=== PATIENT | female | born 1975 | race Caucasian/White ===

== ENCOUNTER 2019-11-02 11:31 | Emergency (ER) | payer MEDICARE, MEDICAID, SELFPAY ==
[2019-11-02 12:06] VITALS: BP 134/78; PULSE 74; RESP 16; TEMP 36.8; O2SAT 94; BMI 30.1
--- NOTE | 2019-11-02 14:00 | XR_ITS ---
WS: [id number] Chest with bilateral rib detail, today Clinical Data: pain Comparison: Portable chest, 07/30/2019 Findings: No nodules, masses or effusions are seen. The ribs are intact. No fractures are present. There is no subcutaneous emphysema or pneumothorax. No pneumonia is seen. The heart size is normal. XR/XR ribs BI mn 4V w CXR1V [id number] Impression: Negative chest with bilateral rib detail.
--- NOTE | 2019-11-02 14:14 | ED_ITS ---
HPI - General Adult General: Chief complaint: General Medical Stated complaint: rib pain Time Seen by Provider: 11/02/19 14:13 Source: patient Mode of arrival: ambulatory Limitations: no limitations History of Present Illness: HPI narrative: Patient is a 44-year-old female who presents to ED today with complaints of intermittent bilateral rib pain over the past month or so; patient states she feels like her ribs spasm and seems to improve when she stretches them; patient states pain seems to alternate on either side; it is not affected by eating; she has no pain on deep inhalation; she does not complain of chest pain or shortness of breath; she does not complain of abdominal pain, nausea, vomiting Onset (ago): month(s) Location: chest Radiation: non-radiation Pain Consistency: intermittent and now resolved Exacerbating factors: none Associated symptoms: Reports no associated symptoms and chest pain; Deny dyspnea, nausea, rash, palpitations, syncope or vomiting Treatments prior to arrival: other (Muscle relaxers without relief) Review of Systems Const: Denies: fever or chills Eyes: Denies: change in vision or blurry vision Card: Reports: chest pain; Denies: palpitations, irregular heart rhythm, edema, swelling of feet/ankles, lightheadedness, syncope, pre-syncope, shortness of breath on exertion, shortness of breath when lying down, leg pain with exertion or bluish discoloration of hands/feet Resp: Denies: shortness of breath, productive cough, wheezing, stridor, pain on inspiration, coughing up blood or chest congestion GI: Denies: abdominal pain, nausea, vomiting, heartburn/indigestion or diarrhea : Denies: painful urination Musc: Denies: neck pain, back pain or joint pain Skin/Breast: Denies: rash PFSH ED PFSH: Statuses (acute, chronic, etc) shown below reflect problem list status as previously entered and may not be historically accurate Family History (Updated 10/30/19 @ 15:59 by Francine Nieto MA) Family/Other Cancer Breast Mother Cancer Mesothelioma Father Cancer Diabetes Family/Other Dementia Grandfather Diabetes Social History (Updated 10/30/19 @ 16:25 by Francine Nieto MA) Smoking and tobacco status: current every day smoker cigarettes Packs smoked per day: 0.5 Second hand smoke exposure: Yes Smoking risk assessment/counseling performed?: No Alcohol intake: unknown Desire information about alcohol rehabilitation?: No Counseling given: No Desire information about substance/drug rehabilitation?: No Counseling given: No Physical Exam Const: COMMON NORMALS: no apparent distress, oriented x3 and alert GENERAL APPEARANCE: cooperative HENMT: COMMON NORMALS: normocephalic, head/scalp atraumatic, external ears normal, EAC's normal, TM's normal bilaterally and external nose normal HEAD & SCALP: normal to inspection, normocephalic and atraumatic FACE & SINUS: normal facial exam NOSE: external nose normal EXTERNAL EAR: Yes external ears normal EXTERNAL AUDITORY CANAL: EAC's normal TYMPANIC MEMBRANE: TM's normal bilaterally MOUTH: oral and palatal mucosa normal THROAT: posterior oropharynx normal, tonsils normal and uvula midline Eye: COMMON NORMALS: PERRL and EOMs intact bilaterally PUPIL: Yes PERRL Neck/C-Spine: COMMON NORMALS: full ROM, no lymphadenopathy, supple and no meningeal signs Chest: COMMONS NORMALS: inspection of chest normal and palpation of chest normal Resp: COMMON NORMALS: normal respiratory effort, no retractions, no use of accessory muscles and clear to auscultation bilaterally AUSCULTATION: clear to auscultation bilaterally Cardio: COMMON NORMALS: regular rate and regular rhythm RATE: regular rate RHYTHM: regular rhythm GI: COMMON NORMALS: normal to inspection, nondistended, normoactive bowel sounds, soft to palpation, non-tender, no hepatosplenomegaly and no masses PALPATION: Yes soft and Yes no hepatosplenomegaly Back/Pelvis: COMMON NORMALS: thoracic and lumbar spine normal to inspection Extremity: COMMON NORMALS: normal to inspection GENERAL: Yes normal exam except as noted Neuro: COMMON NORMALS: oriented x3 SENSORIUM/ORIENTATION: Yes alert MENINGEAL SIGNS: Yes no meningeal signs Course Vital Signs: Vital signs: Vital Signs Temperature 98.2 F 11/02/19 12:06 Pulse Rate 76 11/02/19 15:24 Respiratory Rate 18 11/02/19 15:24 Blood Pressure 102/74 11/02/19 15:24 Pulse Oximetry 94 11/02/19 15:24 MDM - General Adult Lab Data: Labs: Lab Results 11/02/19 11/02/19 Range/Units 14:42 14:42 WBC 11.8 H (4.0-10.0) 10^3/ uL RBC 5.13 (4.1-5.3) 10^6/u L Hgb 15.4 H (11.5-15.3) g/dL Hct 46.3 (37.0-47.0) % MCV 90.3 (81-99) fL MCH 30.0 (28.0-34.0) pg MCHC 33.3 (30.0-36.0) g/dL RDW 12.5 (12.1-15.1) % Plt Count 277 (130-400) 10^3/c mm MPV 10.1 (7.4-10.4) fL Neut % (Auto) 57.7 % Lymph % (Auto) 29.0 % [place] % (Auto) 5.9 % Eos % (Auto) 6.3 % Baso % (Auto) 0.8 % Neut # (Auto) 6.8 (1.8-7.7) 10^3/u L Lymph # (Auto) 3.4 (0.8-4.8) 10^3/u L [place] # (Auto) 0.7 (0.2-0.9) 10^3/u L Eos # (Auto) 0.7 (0.0-0.8) 10^3/u L Baso # (Auto) 0.1 (0.0-0.1) 10^3/u L Nucleated RBC % (a uto) 0 % Nucleated RBCs # 0.0 /100WBC Sodium 134 L (136-145) mmol/L Potassium 4.2 (3.5-5.1) mmol/L Chloride 98 (98-107) mmol/L Carbon Dioxide 23 (22-29) mmol/L Anion Gap 17.2 (5-19) BUN 13 (6-20) mg/dL Creatinine 0.8 (0.5-0.9) mg/dL GFR Calculation 77.2 L (90-130) mL/min Glucose 99 (74-109) mg/dL Calcium 10.1 H (8.6-10.0) mg/Dl Total Bilirubin 0.3 (0.15-1.2) mg/dL AST 19 (0-32) U/L ALT 19 (0-33) U/L Alkaline Phosphata se 114 H (35-105) IU/L Total Protein 7.9 (6.6-8.7) g/dL Albumin 4.4 (3.5-5.2) g/dL Globulin 3.5 (1.3-4.6) g/dL Lipase 48 (13-60) U/L Imaging Data^: CXR: Radiologist's impression: [address] [address] XRay Report Signed Patient: Mary Miller MR#: [id number] : 1975 Acct:[id number] Age/Sex: 44 / F ADM Date: 11/02/19 Loc: ER Attending Dr: Ordering Physician: Lizet Carbajal Date of Service: 11/02/19 Procedure(s): XR ribs BI mn 4V w CXR1V [id number] Accession Number(s): [id number] Report Number: [id number] WS: [id number] Chest with bilateral rib detail, today Clinical Data: pain Comparison: Portable chest, 07/30/2019 Findings: No nodules, masses or effusions are seen. The ribs are intact. No fractures are present. There is no subcutaneous emphysema or pneumothorax. No pneumonia is seen. The heart size is normal. XR/XR ribs BI mn 4V w CXR1V [id number] Impression: Negative chest with bilateral rib detail. Dictated By: Camila Jones MD Signed By: Camila Jones MD Signed Date/Time:11/02/191438 DD/ 35 Discharge Plan Discharge Patient Disposition: Home, Self-Care Clinical Impression: Rib pain on right side, Rib pain on left side Condition: Stable Prescriptions: No Action tizanidine [Zanaflex] 2 mg capsule 2 mg PO TID PRNRF: 0 hydrochlorothiazide 12.5 mg capsule 12.5 mg PO QAM RF: 0 simethicone 180 mg capsule 180 mg PO BID RF: 0 trazodone 100 mg tablet 200 mg PO .COMPLEX RF: 0 fluticasone propion-salmeterol [Advair Diskus] 500-50 mcg/dose blister with device 1 inh INHALATION Q12H RF: 0 All Day Allergy (cetirizine) 10 mg capsule 10 mg PO ONCE RF: 0 prazosin 1 mg capsule 1 mg PO .COMPLEX RF: 0 potassium chloride 10 mEq capsule, extended release 10 meq PO ONCE RF: 0 polyethylene glycol 3350 [Miralax] 17 gram/dose powder 17 gm PO ONCE RF: 0 albuterol sulfate [ProAir HFA] 90 mcg/actuation HFA aerosol inhaler 2 puff INHALATION Q6H PRNRF: 0 ibuprofen 200 mg capsule 200 mg PO Q12H PRNRF: 0 metoprolol tartrate 25 mg tablet 25 mg PO BID RF: 0 Centrum Flavor Burst Adult Tablet,Chewable 1 tab PO ONCE RF: 0 fexofenadine 180 mg tablet 180 mg PO Q24H RF: 0 duloxetine 60 mg capsule,delayed release(DR/EC) 60 mg PO ONCE RF: 0 clonazepam 0.5 mg tablet 0.5 mg PO Q8H RF: 0 naproxen sodium 220 mg capsule 220 mg PO TID PRNRF: 0 acetaminophen 500 mg tablet 500 mg PO Q4H PRNRF: 0 hydroxyzine HCl 25 mg tablet 25 mg PO QID PRNRF: 0 Discharge Orders: Discharge Order (Routine); Ordered 11/02/19 Ordered By: Lizet Carbajal Referrals: Candelaria Roe FNP [Primary Care Provider] - Discharge Diet: Usual diet Discharge Activity: Increase activity as tolerated Activity Restrictions/Additional Instructions: Follow-up with primary care in a week for continued symptoms. Discharge Date/Time: 11/02/19 15:24 Coding Level of Care Code ED Inspector And Mender for Stan Rainey Exam Problem Focused
[2019-11-02 14:48] LABS: Basophils # 0.1 10^3/uL (0.0-0.1); Basophils % 0.8 %; Eosinophils # 0.7 10^3/uL (0.0-0.8); Eosinophils % 6.3 %; Hematocrit 46.3 % (37.0-47.0); Hemoglobin 15.4 g/dL (11.5-15.3); Lymphocytes # 3.4 10^3/uL (0.8-4.8); Mean Corpuscular HGB Conc 33.3 g/dL (30.0-36.0); Mean Corpuscular Volume 90.3 fL (81-99); Mean Platelet Volume 10.1 fL (7.4-10.4); Monocytes # 0.7 10^3/uL (0.2-0.9); Monocytes % 5.9 %; Neutrophils # 6.8 10^3/uL (1.8-7.7); Neutrophils % 57.7 %; Nucleated Red Blood Cells % 0 %; Platelet Count 277 10^3/cmm (130-400); Red Blood Count 5.13 10^6/uL (4.1-5.3); Red Cell Distribution Width 12.5 % (12.1-15.1); White Blood Count 11.8 10^3/uL (4.0-10.0)
[2019-11-02 15:11] LABS: Alanine Aminotransferase 19 U/L (0-33); Albumin Level 4.4 g/dL (3.5-5.2); Alkaline Phosphatase 114 IU/L (35-105); Anion Gap 17.2 (5-19); Aspartate Amino Transferase 19 U/L (0-32); Blood Urea Nitrogen 13 mg/dL (6-20); Calcium 10.1 mg/Dl (8.6-10.0); Carbon Dioxide 23 mmol/L (22-29); Chloride 98 mmol/L (98-107); Globulin 3.5 g/dL (1.3-4.6); Glomerular Filtration Rate 77.2 mL/min (90-130); Glucose 99 mg/dL (74-109); Lipase 48 U/L (13-60); Potassium 4.2 mmol/L (3.5-5.1); Sodium 134 mmol/L (136-145); Total Bilirubin 0.3 mg/dL (0.15-1.2); Total Protein 7.9 g/dL (6.6-8.7)
[2019-11-02 15:24] VITALS: BP 102/74; PULSE 76; RESP 18; O2SAT 94
== END 2019-11-02 15:24 | disposition home or self-care (01) ==
PROVIDERS: Physician Assistant; Emergency Provider Emergency Medicine; Family Provider Nurse Practitioner; PCP Nurse Practitioner
DX: R07.81 Pleurodynia (principal); F17.210 Nicotine dependence, cigarettes, uncomplicated
CPT/HCPCS: 36415; 71111; 80053; 83690; 85025; 99281; 99283

== ENCOUNTER → 2019-11-05 12:40 | Outpatient (BNVA) | payer MEDICARE, MEDICAID, SELFPAY | PROVIDERS: Family Provider Nurse Practitioner; PCP Nurse Practitioner; Visit Provider Psychiatry & Neurology Psychiatry | DX: F33.2 Major depressive disorder, recurrent severe without psychotic features (principal); F41.1 Generalized anxiety disorder; F43.12 Post-traumatic stress disorder, chronic | CPT/HCPCS: 99213 ==

== ENCOUNTER → 2019-11-26 15:04 | Outpatient (BNVA) | payer MEDICARE, SELFPAY | PROVIDERS: Family Provider Nurse Practitioner; PCP Nurse Practitioner; Referring Provider Family Medicine; Visit Provider Family Medicine | DX: R07.81 Pleurodynia (principal); R21 Rash and other nonspecific skin eruption; B02.9 Zoster without complications | CPT/HCPCS: 85025; 85651; 86140; 86431; 87806 ==

== ENCOUNTER 2019-11-30 06:54 | Outpatient (CLI) | payer MEDICARE, MEDICAID, SELFPAY ==
--- NOTE | 2019-11-30 07:15 | USCV_ITS ---
Angela Mary Age: 44 Gender: F : 1975 Exam Date: 11/30/2019 07:12 Ordering Phys: Brandi Samuel MD ([email or web address]) Technologist: Merari Whitman Exam Location: [facility] [place] Indication: CHEST PAIN SHORTNESS OF BREATH PALPITATIONS BP: 110 / 70 HR: 90 Rhythm: Sinus Technical Quality: Adequate MEASUREMENTS (Male / Female) Normal Values 2D ECHO LV Diastolic Diameter PLAX 3.7 cm 4.2 - 5.9 / 3.9 - 5.3 cm LV Systolic Diameter PLAX 2.1 cm LV Chamber Size 2.5 cm IVS Diastolic Thickness 1.0 cm 0.6 - 1.0 / 0.6 - 0.9 cm IVS Systolic Thickness 1.2 cm LVPW Diastolic Thickness 0.4 cm 0.6 - 1.0 / 0.6 - 0.9 cm LVPW Systolic Thickness 1.5 cm RV Chamber Size 2.6 cm LVOT Diameter 2.0 cm LV Ejection Fraction 2D Teich 74.0 % LV Ejection Fraction MOD 2C 75.0 % LV Ejection Fraction 2C AL 76.1 % LA Diameter 2.7 cm LA Width 2.7 cm LA Height 3.5 cm RA Width 2.8 cm RA Height 3.1 cm Aorta at Sinotubular Diameter 3.3 cm M-MODE LV Diastolic Diameter MM 4.3 cm 4.2 - 5.9 / 3.9 - 5.3 cm LV Systolic Diameter MM 2.9 cm LV Ejection Fraction MM Teich 61.5 % IVS Diastolic Thickness MM 0.7 cm 0.6 - 1.0 / 0.6 - 0.9 cm IVS Systolic Thickness MM 0.9 cm LVPW Diastolic Thickness MM 0.9 cm 0.6 - 1.0 / 0.6 - 0.9 cm LVPW Systolic Thickness MM 1.1 cm RV Diastolic Diameter MM 0.8 cm Aortic Annulus Diameter 3.6 cm LA Ao Ratio MM 0.8 MV E Point Septal Separation 0.2 cm DOPPLER AV Peak Velocity 125.0 cm/s LVOT Peak Velocity 89.0 cm/s AV Area Cont Eq vti 2.6 cm squared AV Area Cont Eq pk 2.3 cm squared MV Area PHT 6.5 cm squared Mitral E to A Ratio 0.9 MV E' Velocity 16.0 cm/s Mitral E to MV E' Ratio 4.7 Mitral E to LV E' Lateral Ratio 3.8 Mitral E to LV E' Septal Ratio 5.9 TR Peak Velocity 242.6 cm/s TR Peak Gradient 23.5 mmHg TR Mean Velocity 146.4 cm/s TR Mean Gradient 10.0 mmHg TR Velocity Time Integral 42.1 cm TV Peak E Velocity 64.0 cm/s Right Atrial Pressure 3.0 mmHg Pulmonary Artery Systolic Pressu 26.5 mmHg PV Peak Velocity 52.0 cm/s RV Acceleration Time 0.2 s RV Ejection Time 0.3 s RV AcT/ET 0.5 FINDINGS Left Ventricle Normal left ventricular cavity size. Normal left ventricular systolic function. No regional wall motion abnormalities. Left ventricular ejection fraction is estimated at 61 %. Grade I/IV diastolic dysfunction (abnormal relaxation filling pattern), normal to mildly elevated filling pressures. Right Ventricle The right ventricle is normal in size and function. Right Atrium The right atrium is normal in size. Left Atrium The left atrium is normal in size. Mitral Valve Structurally normal mitral valve without significant stenosis or prolapse. There is no mitral regurgitation. Aortic Valve Aortic valve sclerosis without stenosis or regurgitation. Tricuspid Valve Structurally normal tricuspid valve without significant stenosis or regurgitation. Pulmonary artery systolic pressure is normal. Pulmonic Valve Structurally normal pulmonic valve without significant stenosis. There is no pulmonic regurgitation. Pericardium Normal pericardium without effusion. Aorta Normal ascending aorta dimension. CONCLUSIONS 1-Normal left ventricular cavity size. Normal left ventricular systolic function. No regional wall motion abnormalities. Left ventricular ejection fraction is estimated at 61 %. Grade I/IV diastolic dysfunction (abnormal relaxation filling pattern), normal to mildly elevated filling pressures. 2-There is no pericardial effusion. 3-No significant valve abnormalities. 4-Pulmonary artery systolic pressure is within normal limits. 5-Right atrial pressure is around 5 mm of mercury. 6-There are no prior echocardiogram studies to compare. Brandi Samuel MD (Electronically Signed) Final Date: 30 November 2019 17:37 S
== END 2019-11-30 06:55 | disposition home or self-care (01) ==
LOC: US 06:57
PROVIDERS: Visit Provider Internal Medicine Cardiovascular Disease
DX: R07.9 Chest pain, unspecified (principal); R06.02 Shortness of breath; R00.2 Palpitations
CPT/HCPCS: 93306

== ENCOUNTER 2019-12-03 08:38 | Outpatient (CLI) | payer MEDICARE, MEDICAID, SELFPAY ==
--- NOTE | 2019-12-03 08:44 | CT_ITS ---
WS: [id number] CT scan of the thoracic spine. Additional two-dimensional coronal and sagittal reconstruction was per formed. 12/03/2019 Clinical Data: back pain, and rib pain Comparison: None. DLP: 1079.[address] scans at [facility] use at least one of these dose optimization techniques: automat ed exposure control; mA and/or kV adjustment per patient size (includes targeted exams where dose is matched to clinical indication); or iterative reconstruction. Findings: No compression fractures are seen. There is minimal anterior osteoarthritic spurring of the lower tho racic vertebral bodies. The spinous processes are in good alignment. The proximal ribs are not remark able. There is calcification of the disc between the T10-T11 vertebral bodies. It is a Schmorl's node at the inferior aspect of the T11 vertebral body. CT/CT thoracic spine w con [id number] Impression: 1. Degenerative disc disease at T11-T12. 2. Schmorl's node at inferior posterior aspect of the T11 vertebral body.
--- NOTE | 2019-12-03 09:00 | CT_ITS ---
WS: [id number] CT scan of the chest with IV contrast, additional two-dimensional coronal and sagittal reconstruction was performed. 12/03/2019 Clinical Data: rib pain Comparison: Rib detail, 11/02/2019 DLP: 875.[address] scans at [facility] use at least one of these dose optimization techniques: automat ed exposure control; mA and/or kV adjustment per patient size (includes targeted exams where dose is matched to clinical indication); or iterative reconstruction. Findings: No nodules, masses or effusions are seen. The heart size is normal with no pericardial effusion. The pulmonary arterial system and thoracic aorta demonstrate no abnormalities or dilatations. There is no axillary or significant mediastinal adenopathy. The ribs appear to be normal. The trachea bifurcates normally into the bronchi. The upper abdomen is unremarkable CT/CT chest w con* [id number] Impression: Negative CT scan of the chest with IV contrast.
[2019-12-03] MEDS: iohexol 300 mg/mL 100 mL Btl IV ×2 (09:36→09:45)
== END 2019-12-03 08:39 | disposition home or self-care (01) ==
LOC: RADWPI 08:44
PROVIDERS: PCP Family Medicine; Visit Provider Family Medicine
DX: R07.81 Pleurodynia (principal); M51.34 Other intervertebral disc degeneration, thoracic region; M51.44 Schmorl's nodes, thoracic region
CPT/HCPCS: 71260; 72129; 99213; Q9967

== ENCOUNTER 2019-12-04 07:22 | Outpatient (CLI) | payer MEDICARE, MEDICAID, SELFPAY ==
--- NOTE | 2019-12-04 08:07 | ECG_ITS ---
NAME OF STUDY: EXERCISE SESTAMIBI STRESS TEST INDICATION: Shortness of Breath, EXERCISE DATA: The patient was exercised by Santhosh protocol. Baseline heart rate was 62 beats per minute. Baseline blood pressure was 118/83 millimeters of mercury. Target heart rate was 174 beats per minute. Maximum heart rate achieved was 159, which was 91% of the target heart rate. Maximum blood pressure was 159/83 millimeters of mercury. Total exercise time was 4 minutes. Maximum METs achieved was 7.0, maximum VO2 was 24.5. The reason for ending the test was completion of the protocol . The patient complained of shortness of during the stress test, which then resolved at the end of the test. ELECTROCARDIOGRAM: BASELINE: Showed sinus rhythm, normal axis, no significant ST-T changes at the baseline noted. EXERCISE: At the peak exercise level, No significant ST-T changes suggestive of ischemia noted. RECOVERY: During the recovery period, heart rate dropped appropriately. No significant ST-T changes in the recovery suggestive of ischemia noted. CONCLUSION: 1. Exercise capacity poor. 2. Heart rate response was appropriate. 3. Blood pressure response was appropriate. 4. Symptoms not suggestive of ischemia. 5. Electrocardiogram portion of the stress test was not suggestive of ischemia. 6. Nuclear scan will be documented separately. Please note that due to poor exercise capacity and under achievement of METs specificity and sensitivity of EKG portion of stress test will be low Electronically Signed On 12-04-2019 15:26:41 RECRUITER MANAGER by Brandi Samuel M.D. [email or web address]
--- NOTE | 2019-12-04 08:08 | NMCV_ITS ---
NM jenniffer perf SPECT r/s* [id number] Mary Miller Age: 44 Gender: F : 1975 Exam Date: 12/04/2019 08:40 Ordering Phys: Brandi Samuel MD ([email or web address]) Technologist: OG Davis Exam Location: [facility] Indications: SOB STRESS TEST [facility] IMAGE PROTOCOL Rest/Stress 1 Exercise Day Radiopharmaceutical Dose (mCi) Administration Site Administered by Rest: Tc-99m 10.6 IV OG Davis Sestamibi Stress:Tc-99m 32.5 IV OG Davis Sestamimervat Rest: 04-Dec-2019 60 Discovery 630 Stress: 04-Dec-2019 30 Discovery 630 Radiopharmaceutical was injected at 85 % maximum heart rate. Images obtained in supine and prone position. SPECT RESULTS Technical Quality: Good Raw Data Analysis: Breast attenuation Image Corrections: No attenuation or motion correction applied Summed Stress Score: 0 Summed Rest Score: 0 Summed Difference Score: 0 PERFUSION FINDINGS SPECT images demonstrate homogeneous tracer distribution throughout the myocardium. FUNCTIONAL RESULTS (calculated via Gated SPECT) Stress Image LV EF (%): 64 Stress EDV (mL):70 TID: 1.05 Stress ESV (mL):25 Rest Image LV EF (%): 64 FUNCTIONAL FINDINGS: There is normal left ventricular systolic function. IMPRESSIONS Myocardial perfusion imaging is normal and low probability for obstructive coronary artery disease. EKG segment will be documented separately. Brandi Samuel MD (Electronically Signed) Final Date: 04 December 2019 14:33 S
[2019-12-04 08:09] VITALS: BMI 31.1
[2019-12-04 09:34] VITALS: BP 121/79; PULSE 95
== END 2019-12-04 07:23 | disposition home or self-care (01) ==
LOC: CDL 07:24
PROVIDERS: PCP Family Medicine; Visit Provider Internal Medicine
DX: I25.10 Atherosclerotic heart disease of native coronary artery without angina pectoris (principal); R06.02 Shortness of breath; R00.2 Palpitations
CPT/HCPCS: 78452; 93017; A9500

== ENCOUNTER → 2019-12-24 12:53 | Outpatient (BNVA) | payer MEDICARE, MEDICAID, SELFPAY | PROVIDERS: PCP Family Medicine; Visit Provider Specialist | DX: G43.711 Chronic migraine without aura, intractable, with status migrainosus (principal); G31.84 Mild cognitive impairment of uncertain or unknown etiology; D32.0 Benign neoplasm of cerebral meninges | CPT/HCPCS: 64615; 96372; 99213; J0585; J1885 ==

== ENCOUNTER → 2019-12-30 15:39 | Outpatient (BNVA) | payer MEDICARE, MEDICAID, SELFPAY | PROVIDERS: PCP Family Medicine; Referring Provider Nurse Practitioner Women's Health; Visit Provider Nurse Practitioner Women's Health | DX: N93.9 Abnormal uterine and vaginal bleeding, unspecified (principal) | CPT/HCPCS: 76830 ==

== ENCOUNTER → 2020-01-19 13:58 | Outpatient (BNVA) | payer MEDICARE, MEDICAID, SELFPAY | PROVIDERS: PCP Family Medicine; Visit Provider Specialist | DX: G43.909 Migraine, unspecified, not intractable, without status migrainosus (principal); Z71.89 Other specified counseling; F17.210 Nicotine dependence, cigarettes, uncomplicated; F31.63 Bipolar disorder, current episode mixed, severe, without psychotic features; F43.12 Post-traumatic stress disorder, chronic; F41.1 Generalized anxiety disorder; F41.0 Panic disorder [episodic paroxysmal anxiety] | CPT/HCPCS: 96372; 99214; G0463; J2405 ==

== ENCOUNTER → 2020-01-27 07:18 | Outpatient (BNVA) | payer MEDICARE, MEDICAID, SELFPAY | PROVIDERS: PCP Family Medicine; Visit Provider Nurse Practitioner Psychiatric/Mental Health | DX: F31.63 Bipolar disorder, current episode mixed, severe, without psychotic features (principal); F43.12 Post-traumatic stress disorder, chronic; F41.1 Generalized anxiety disorder; F41.0 Panic disorder [episodic paroxysmal anxiety] | CPT/HCPCS: 99214 ==

== ENCOUNTER → 2020-02-17 07:40 | Outpatient (BNVA) | payer MEDICARE, MEDICAID, SELFPAY | PROVIDERS: PCP Family Medicine; Visit Provider Nurse Practitioner Psychiatric/Mental Health | DX: F31.63 Bipolar disorder, current episode mixed, severe, without psychotic features (principal); F43.12 Post-traumatic stress disorder, chronic; F41.1 Generalized anxiety disorder; F40.01 Agoraphobia with panic disorder | CPT/HCPCS: 99214 ==

== ENCOUNTER → 2020-03-02 08:30 | Outpatient (BNVA) | payer MEDICARE, MEDICAID, SELFPAY | PROVIDERS: PCP Family Medicine; Visit Provider Nurse Practitioner Psychiatric/Mental Health | DX: F31.63 Bipolar disorder, current episode mixed, severe, without psychotic features (principal); F43.12 Post-traumatic stress disorder, chronic; F41.1 Generalized anxiety disorder; F40.01 Agoraphobia with panic disorder | CPT/HCPCS: 99214 ==

== ENCOUNTER 2020-03-16 14:16 | Observation (INO) | payer MEDICARE, MEDICAID, SELFPAY ==
[2020-03-15 07:48] VITALS: BMI 31.8
[2020-03-15 09:32] VITALS: BMI 31.8
[2020-03-16] VITALS (16 sets, daily range): BP systolic 86–136; BP diastolic 53–89; PULSE 67–89; RESP 14–23; TEMP 36.3–36.7; O2SAT 90–100
[2020-03-16] MEDS: scopolamine 1.5 Patch 1 PATCH TRANSDERMA (09:42)
[2020-03-16] MEDS: sodium chloride 0.9% 1,000 ML 30 ML IV (09:42)
--- NOTE | 2020-03-16 09:47 | ANES.PREANE2 ---
Pre-Anesthetic Assessment Pre-Anesthetic Assessment: Height/Weight: Height 1.6 m Weight 81.647 kg Temp Pulse Resp BP Pulse Ox 97.6 F 85 18 98/67 95 03/16/20 09:22 03/16/20 09:22 03/16/20 09:22 03/16/20 09:22 03/16/20 09:22 Preop Diagnosis: Stress urinary incontinence Proposed Procedure: Operation Date: 03/16/20 10:40 Proposed Procedures p midurethral single incision sling vulvar biopsy(Not Applicable) - Cuco Bruno MD Familial anesthetic complications: none Was Beta Shadia taken within 24 hours: N/A Last intake: Intake Last Liquid Date 03/15/20 Last Liquid Time 23:00 Last Solid Date 03/15/20 Last Solid Time 19:00 Social: Social History: Tobacco and No alcohol Exam: Pre-Anes Outpt Exam: alert, oriented x 3, clear to auscultation bilaterally and regular rate & rhythm Airway: Cervical ROM: WNL MP: 4 Additional comments: missing Pulmonary: Pulmonary: Asthma and COPD CV/HEM: CV/HEM: Angina (Stable) (anxiety), Arrythmia (tachycardia (PSVt)) and HTN : : None reported Hepatic: Hepatic: None reported GI: GI: None reported Metabolic: Metabolic: None reported Musc/skel: Musc/skel: None reported Neuropsych: Neuropsych: Depression and MAN Anesthetic Plan: ASA status: 2 Anesthesia: General Risk of > 500 ml blood loss (7ml/kg in children): No Meds/Allergies Current Medications: Current Medications Generic Name Dose Route Start Last Admin Trade Name Freq PRN Reason Stop Dose Admin Sodium Chloride 1,000 mls @ 30 ml s/hr 03/16/20 09:15 03/16/20 09:42 Sodium Chloride 0.9% IV 03/17/20 09:14 30 mls/hr .Q24H KRYSTA Administration PFSH Anesthesia PFSH: Medical History Back pain Bipolar I disorder, most recent episode mixed, severe without psychotic features Brain mass Chest pain COPD (chronic obstructive pulmonary disease) History of cancer of vulva (~1995) HTN (hypertension) with goal to be determined Mixed incontinence Panic disorder with agoraphobia PSVT (paroxysmal supraventricular tachycardia) Shingles Shortness of breath Surgical History History of hysterectomy (~1994) SYDNI, ovaries spared-- reports for precancerous cervix cells Hx of bladder repair surgery (~1999) in clinic procedure Hx of breast biopsy Right Breast; benign- Giurgius S/P tonsillectomy Status post gamma knife treatment (~2004) Frontal Lobe of Benign Brain Tumor Family History Family/Other Cancer Breast Mother Cancer cervical cancer Mesothelioma Father Cancer Diabetes Hyperlipidemia Hypertension Stroke Family/Other Dementia Grandfather Diabetes Grandmother Cancer Paternal grandmother Denies family history of Heart disease Social History Smoking and tobacco status: current every day smoker cigarettes Packs smoked per day: 0.5 Alcohol intake: never Marital status: Female Reproductive History: Para: 3 Spontaneous abortions: No Data Anesthesia Cardiac Studies: No Data to Display
[2020-03-16 10:53] LABS: Basophils # 0.1 10^3/uL (0.0-0.1); Basophils % 0.8 %; Eosinophils # 0.3 10^3/uL (0.0-0.8); Eosinophils % 3.6 %; Hematocrit 44.7 % (37.0-47.0); Hemoglobin 14.6 g/dL (11.5-15.3); Lymphocytes # 2.3 10^3/uL (0.8-4.8); Lymphocytes % 24.9 %; Mean Corpuscular HGB Conc 32.7 g/dL (30.0-36.0); Mean Corpuscular Hemoglobin 29.5 pg (28.0-34.0); Mean Corpuscular Volume 90.3 fL (81-99); Monocytes # 0.6 10^3/uL (0.2-0.9); Monocytes % 6.8 %; Neutrophils # 5.9 10^3/uL (1.8-7.7); Neutrophils % 63.5 %; Nucleated Red Blood Cells % 0 %; Platelet Count 248 10^3/cmm (130-400); Red Blood Count 4.95 10^6/uL (4.1-5.3); Red Cell Distribution Width 13.9 % (12.1-15.1); White Blood Count 9.3 10^3/uL (4.0-10.0)
[2020-03-16 10:55] LABS: Alanine Aminotransferase 24 U/L (0-33); Albumin Level 4.2 g/dL (3.5-5.2); Alkaline Phosphatase 100 IU/L (35-105); Anion Gap 13.7 (5-19); Aspartate Amino Transferase 21 U/L (0-32); Blood Urea Nitrogen 10 mg/dL (6-20); Calcium 8.9 mg/dL (8.5-10.5); Carbon Dioxide 24 mmol/L (22-29); Chloride 104 mmol/L (98-107); Globulin 2.6 g/dL (1.3-4.6); Glomerular Filtration Rate 77.2 mL/min (90-130); Glucose 111 mg/dL (65-115); OR HCG Qualitative Urine Negative (Negative); Osmolality Calculated 283 mOsm/kg (285-295); Potassium 3.7 mmol/L (3.5-5.1); Sodium 138 mmol/L (136-145); Total Bilirubin 0.2 mg/dL (0.15-1.2); Total Protein 6.8 g/dL (6.6-8.7)
--- NOTE | 2020-03-16 11:16 | W.PM.OPSUD ---
Surgery/Procedure H&P Update DATE OF PROCEDURE: March 16, 2020 DATE H&P PERFORMED: 03/14/20 H&P UPDATE INFORMATION: I have reviewed H&P completed within last 30 days, I have examined patient prior to procedure and No changes to prior documentation PREOP DIAGNOSIS: Stress urinary incontinence PLANNED PROCEDURE: Operation Date: 03/16/20 10:40 Proposed Procedures p midurethral single incision sling vulvar biopsy(Not Applicable) - Cuco Bruno MD
--- NOTE | 2020-03-16 13:58 | PM.OP ---
Operative Report Date of procedure: March 16, 2020 Pre-op Diagnosis: Stress urinary incontinence, vulvar Lichen sclersous Post-op diagnosis: same Procedure Done: MidUrethral sling. Left labia majora biopsy Specimens removed/disposition: Vulvar biopsy Surgeon: Cuco Bruno Anesthesia: General Estimated blood loss (mL): 20 IV fluids (mL): 900 Urine output (mL): 500 Condition: stable Disposition: PACU Brief History: 44-year-old female status post hysterectomy with stress urinary incontinence, and vulvar lesion. Procedure: After obtaining informed consent, the patient was taken to the operating room and placed in the supine position, given general anesthesia, and prepped and draped in sterile fashion. The abdomen, vulva and vagina were prepped and draped in a sterile manner. A time out procedure was performed. Exam under anesthesia performed. A Curry catheter was placed in the bladder. The anterior vaginal mucosa beneath the midurethra was infiltrated with 0.5% Marcaine with epinephrine. A vertical midline incision was made beneath the midurethra, nearly 1.5 cm length. Careful submucosal dissection was performed bilaterally up to the interior portion of the inferior pubic ramus. The insertion of adductor longus tendon on the patient?s pubic ramus was identified as reference land oneil. Palpated the notch along the internal edge of ischiopubic ramus where the adductor longus tendon and the inferior pubic ramus meet. The needle of the SIS inserted aiming at the location of this notch. One of the integrated self-fixating tips place onto the needle by sliding it over the end of the needle. The needle/sling assembly was inserted toward the location of identified reference notch making sure that the flat of the handle is perpendicular to the desired path. The needle was tracked along the posterior surface of the ischiopubic ramus until the midline oneil on the mesh is approximately at the midline position under the urethra. The needle was removed and the same was repeated on the contralateral side until the appropriate sling tension under the urethra was achieved ensuring that the mesh lays flat. The needle was removed and vaginal incision was closed in a running interlocking fashion with 2-0 Vicryl. Then A wedge receptionist scheduler on vulvar biopsy was performed on the left labia majora. Biopsy skin incision was closed with 3-0 Vicryl in subcuticular fashion. Excellent hemostasis was obtained. Sponge, lap, needle, and instrument counts were correct times three. The patient was taken to the recovery room, awake and in stable condition.
--- NOTE | 2020-03-16 14:03 | SUR.PHASEI ---
[id number] PATIENT TO PACU AT THIS TIME FROM OR. RR EVEN AND UNLABORED. PATIENT RESTLESS. SPO2 100% ON SIMPLE MASK AT 8L.
--- NOTE | 2020-03-16 14:36 | SUR.PHASEI ---
1421 PATIENT TO MED SURG. DENIES NAUSEA, TOLERATING ICE CHIPS. BROWNING CATH IN PLACE, DRAINING CLEAR, YELLOW URINE. PATIENT AMBULATORY FROM [facility] TO BED WHEN ARRIVING TO THE MED SURG FLOOR.
[2020-03-16] MEDS: dextrose 5%-lactated ringers 1,000 ML 125 ML IV ×2 (14:57→23:35)
[2020-03-16] MEDS: gabapentin 300 mg Capsule 600 MG PO ×2 (15:01→20:32)
[2020-03-16] MEDS: diazePAM 5 mg Tablet PO (15:02)
[2020-03-16] MEDS: HYDROcodone-acetaminophen 5-325 mg Tablet PO (15:02)
[2020-03-16] MEDS: ketorolac 30 mg/mL INJ IVP ×2 (15:02→22:08)
[2020-03-16] MEDS: docusate sodium 100 mg Capsule PO (18:10)
--- NOTE | 2020-03-16 19:48 | PC.NURSE ---
Patient has bowel sounds in all four quadrants. Patient reports that she has been passing flatus for the last hour or so. Doctor ordered diet to be advanced once patient is able to pass flatus.
[2020-03-16] MEDS: ceFAZolin 1,000 MG in sodium chloride 0.9% (plus) 50 ML 100 MG IV (20:31)
[2020-03-16] MEDS: prazosin 5 mg Capsule PO (20:32)
[2020-03-16] MEDS: trazodone 100 mg Tablet 300 MG PO (20:37)
[2020-03-17] VITALS: BP 98/60; PULSE 91; RESP 16; TEMP 36.6; O2SAT 99
[2020-03-17 04:00] VITALS: BP 100/66; PULSE 97; RESP 20; TEMP 36.6; O2SAT 94
[2020-03-17] MEDS: ceFAZolin 1,000 MG in sodium chloride 0.9% (plus) 50 ML 100 MG IV (04:39)
[2020-03-17] MEDS: HYDROcodone-acetaminophen 5-325 mg Tablet PO (05:01)
[2020-03-17 05:13] LABS: Hematocrit 41.4 % (37.0-47.0); Hemoglobin 13.3 g/dL (11.5-15.3); Mean Corpuscular HGB Conc 32.1 g/dL (30.0-36.0); Mean Corpuscular Volume 93.2 fL (81-99); Mean Platelet Volume 9.9 fL (7.4-10.4); Platelet Count 212 10^3/cmm (130-400); Red Blood Count 4.44 10^6/uL (4.1-5.3); Red Cell Distribution Width 14.2 % (12.1-15.1); White Blood Count 6.6 10^3/uL (4.0-10.0)
[2020-03-17 07:34] VITALS: PULSE 70; RESP 16; O2SAT 96
[2020-03-17 07:50] VITALS: BP 123/78; PULSE 76; RESP 16; TEMP 36.6; O2SAT 95
[2020-03-17] MEDS: dextrose 5%-lactated ringers 1,000 ML 125 ML IV (08:37)
[2020-03-17] MEDS: ketorolac 30 mg/mL INJ IVP (08:40)
[2020-03-17] MEDS: duloxetine 30 mg Capsule PO (08:41)
[2020-03-17] MEDS: estradiol 1 mg Tablet PO (08:41)
[2020-03-17] MEDS: docusate sodium 100 mg Capsule PO (08:41)
[2020-03-17] MEDS: zonisamide 100 MG Capsule 200 MG PO (08:41)
[2020-03-17] MEDS: metoprolol tartrate 25 mg Tablet PO (08:42)
[2020-03-17] MEDS: gabapentin 300 mg Capsule 600 MG PO (08:42)
[2020-03-17] MEDS: polyethylene glycol 3350 Pkt 17 gm PO (08:43)
[2020-03-17] MEDS: hydroCHLOROthiazide 25 mg Tablet 12.5 MG PO (08:43)
[2020-03-17] MEDS: fexofenadine 60 mg Tablet 180 MG PO (08:43)
[2020-03-17] MEDS: diazePAM 5 mg Tablet PO (08:48)
[2020-03-17 11:37] VITALS: BP 92/58; PULSE 73; RESP 16; TEMP 36.8; O2SAT 95
--- NOTE | 2020-03-17 11:44 | PC.CHAP ---
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 equipment mechanic specialist visit [] Patient/Family/Request visit [] Outpatient visit [] Follow-up visit [] Physician referral [] Code/Alert [x] Routine visit [] Staff referral [] Actively dying [] Patient sleeping [] Family support [] [] Out of room [] Palliative care [] [] Receiving care in room [] Pre-surgical visit [] Trauma [] Long length of stay [] ICU visit [] Other: Relational/Emotional Strength [x] Patient feels connected with others/family/visitors/staff [] Distress [] Loneliness/isolation [] Abandonment Spirituality of Patient [] Person of Leida [] Attends Taoism of their Leida [] Believes in Prayer [] Reads Bible or Religion materials [x] There are Spiritual issues to be addressed Education Technician Interventions [x] Prayer [x] Active listening [x] Non-anxious presence [x] Spiritual/emotional support [] Crisis/trauma care [x] Spiritual counseling [] Bereavement support [] Provided bereavement packet [] Provided Bible/devotional materials [] Provided toy/stuffed animal, coloring book to patient or family member [] Provided Communion [] Anointing/Eva [] Salvation [x] Completed spiritual assessment [] Other: Impact on Illness or Injury [] Angry [] Fearful [] Anxious [] Often cries [] Exhaustion [] Unable to work [] Unable to attend sabianism [] Unable to walk/stand [] Unable to read [] Unable to drive [] Unable to eat/drink [] Unable to sleep [] Unable to be with family [] Patient intubated [x] Other: Summary Patient is a non-believer and stated she has many questions. The gospel of Darren was shared. Time spent with patient 15 minutes
--- NOTE | 2020-03-17 13:04 | PM.OBGYDC ---
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 The procedures were performed without complication overnight observation was uneventful. She is afebrile hemodynamically stable tolerating diet well ambulating without difficulty. Pain under control with medication. Patient instructed to follow-up in 2 weeks. Physical Exam Narrative: EXAM NARRATIVE: GA: Alert and oriented ?3. HEENT: WNL. Heart: Regular rate and rhythm. Lungs: Clear to auscultation bilaterally. Abdomen: Bowel sounds present, nontender, minimal tenderness. 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 Extremities: No edema, no cyanosis, no calves pain. Urinary Catheter Management^: Curry: Cath Placed During This Visit: yes Urinary Catheter Date of Insertion: 03/16/20 Urinary Catheter Time of Insertion: 13:15 Discharge Data Data Completed and Pending: Pending at discharge Category Date Time Status Pathology: Surgic al [PTH] Routine Pth 03/17/20 09:57 Received Labs from last 24 hours 03/17/20 04:57 WBC 6.6 RBC 4.44 Hgb 13.3 Hct 41.4 MCV 93.2 MCH 30.0 MCHC 32.1 RDW 14.2 Plt Count 212 MPV 9.9 Laboratory Tests 03/16/20 09:30 WBC 9.3 Hgb 14.6 Hct 44.7 Plt Count 248 Vitals: Last Vital Signs Temp 98.3 F 03/17/20 11:37 Pulse 73 03/17/20 11:37 Resp 16 03/17/20 11:37 BP 92/58 03/17/20 11:37 Pulse Ox 95 03/17/20 11:37 Discharge Plan Discharge Patient Disposition: Home, Self-Care Condition: Stable Prescriptions: New ibuprofen 600 mg tablet 600 mg PO TID PRN (Reason: fever or pain) Qty: 60 RF: 0 acetaminophen [Tylenol Extra Strength] 500 mg tablet 500 mg PO Q4H PRN (Reason: fever or pain) Qty: 60 RF: 0 Continued simethicone 180 mg capsule 180 mg PO BID RF: 0 fexofenadine 180 mg tablet 180 mg PO Q24H RF: 0 ibuprofen 200 mg capsule 800 mg PO TID PRN (Reason: fever or pain) RF: 0 Centrum Flavor Burst Adult Tablet,Chewable 1 tab PO DAILY RF: 0 polyethylene glycol 3350 [Miralax] 17 gram/dose powder 17 gm PO DAILY RF: 0 hydrocortisone [Cortisone (hydrocortisone)] 1 % cream 1 applic TOPICAL TID PRN (Reason: skin irritation) Qty: 14.2 RF: 0 diazepam [Valium] 5 mg tablet 5 mg PO TID PRN (Reason: anxiety) Qty: 90 RF: 1 nitroglycerin [Nitrostat] 0.4 mg tablet, sublingual 0.4 mg SUBLINGUAL Q5M PRN (Reason: chest pain) Qty: 25 RF: 3 Benadryl 2 % gel 1 applic TOPICAL BID PRN (Reason: itching) Qty: 103 RF: 0 fluticasone propion-salmeterol [Advair Diskus] 500-50 mcg/dose blister with device 1 inh INHALATION BID RF: 0 zonisamide [Zonegran] 100 mg capsule 200 mg PO DAILY Qty: 60 RF: 6 albuterol sulfate [ProAir HFA] 90 mcg/actuation HFA aerosol inhaler 2 puff INHALATION Q6H PRN (Reason: shortness of breath or wheezing) 30 Days Qty: 18 RF: 2 estradiol 1 mg tablet 1 mg PO DAILY Qty: 30 RF: 11 divalproex 500 mg tablet extended release 24 hr 500 mg PO QAM RF: 0 hydrochlorothiazide 12.5 mg capsule 12.5 mg PO DAILY RF: 0 Lidocaine Viscous 2 % solution 1 applic topical Q1H PRN (Reason: Pain) RF: 0 metoprolol tartrate 25 mg tablet 25 mg PO BID RF: 0 Vraylar 3 mg capsule 3 mg PO DAILY RF: 0 prazosin 5 mg capsule 5 mg PO BEDTIME RF: 0 trazodone 100 mg tablet 300 mg PO BEDTIME PRN (Reason: sleep) RF: 0 gabapentin 300 mg capsule 600 mg PO TID RF: 0 duloxetine [Cymbalta] 30 mg capsule,delayed release(DR/EC) 30 mg PO DAILY RF: 0 Discharge Orders: Discharge Order (Routine); Ordered 03/17/20 Ordered By: Cuco Bruno Discharge Diet: Regular Discharge Activity: Increase activity as tolerated Activity Restrictions/Additional Instructions: Pelvic rest for 6 weeks (no sex, no tampons, no vaginal douches). Return to the emergency room if any fever, increased bleeding or pain. 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
[2020-03-17 13:42] VITALS: BP 92/58; PULSE 73; RESP 16; TEMP 36.8; O2SAT 95
== END 2020-03-17 14:04 | disposition home or self-care (01) ==
LOC: MEDSURG 14:17
PROVIDERS: Admitting Provider Obstetrics & Gynecology; PCP Family Medicine; Visit Provider Obstetrics & Gynecology
PROC: (CPT 57288; principal; 2020-03-16 10:40)
PROC: (CPT 56605; 2020-03-16 10:40)
PROC: 0TJB8ZZ Inspection of Bladder, Via Natural or Artificial Opening Endoscopic (ICD-10-PCS; CPT 52000; 2020-03-16 10:40)
DX: L90.0 Lichen sclerosus et atrophicus (principal); N39.46 Mixed incontinence; J44.9 Chronic obstructive pulmonary disease, unspecified; I10 Essential (primary) hypertension
CPT/HCPCS: 56605; 57288; 12345; 36415; 80053; 84703; 85025; 85027; 86850; 86900; 88305; 94640; 96361; 96365; 96366; 96375; C1713; G0378; J0690; J1885; J2001; J2704; J3010; J7030; J8499

== ENCOUNTER → 2020-03-17 14:45 | Outpatient (BNVA) | payer MEDICARE, MEDICAID, SELFPAY | PROVIDERS: PCP Family Medicine; Visit Provider Specialist | DX: G43.711 Chronic migraine without aura, intractable, with status migrainosus (principal); F17.210 Nicotine dependence, cigarettes, uncomplicated | CPT/HCPCS: 64615; J0585 ==

== ENCOUNTER → 2020-03-30 07:40 | Outpatient (BNVA) | payer MEDICARE, MEDICAID, SELFPAY | PROVIDERS: PCP Family Medicine; Visit Provider Nurse Practitioner Psychiatric/Mental Health | DX: F31.63 Bipolar disorder, current episode mixed, severe, without psychotic features (principal); F43.12 Post-traumatic stress disorder, chronic; F41.1 Generalized anxiety disorder; F40.01 Agoraphobia with panic disorder | CPT/HCPCS: 99214 ==

== ENCOUNTER → 2020-04-15 07:35 | Outpatient (BNVA) | payer MEDICARE, SELFPAY | PROVIDERS: PCP Family Medicine; Visit Provider Nurse Practitioner Psychiatric/Mental Health | DX: F42.2 Mixed obsessional thoughts and acts (principal); F31.63 Bipolar disorder, current episode mixed, severe, without psychotic features; F43.12 Post-traumatic stress disorder, chronic; F41.1 Generalized anxiety disorder; F40.01 Agoraphobia with panic disorder | CPT/HCPCS: 99214 ==

== ENCOUNTER → 2020-04-18 13:17 | Outpatient (BNVA) | payer OTHER, SELFPAY | PROVIDERS: PCP Family Medicine; Visit Provider Obstetrics & Gynecology | DX: K59.04 Chronic idiopathic constipation (principal); R39.11 Hesitancy of micturition | CPT/HCPCS: 81000 ==

== ENCOUNTER → 2020-05-03 15:27 | Outpatient (BNVA) | payer SELFPAY | PROVIDERS: PCP Family Medicine; Visit Provider Nurse Practitioner | DX: R52 Pain, unspecified (principal) | CPT/HCPCS: 87635 ==

== ENCOUNTER → 2020-05-18 07:39 | Outpatient (BNVA) | payer OTHER, SELFPAY | PROVIDERS: PCP Family Medicine; Visit Provider Nurse Practitioner Psychiatric/Mental Health | DX: F42.2 Mixed obsessional thoughts and acts (principal); F10.21 Alcohol dependence, in remission; F31.63 Bipolar disorder, current episode mixed, severe, without psychotic features; F43.12 Post-traumatic stress disorder, chronic; F41.1 Generalized anxiety disorder; F40.01 Agoraphobia with panic disorder | CPT/HCPCS: 99214 ==

== ENCOUNTER 2020-05-26 07:41 | Outpatient (CLI) | payer MEDICARE, MEDICAID, SELFPAY ==
--- NOTE | 2020-05-26 08:00 | USCV_ITS ---
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
== END 2020-05-26 07:42 | disposition home or self-care (01) ==
PROVIDERS: PCP Family Medicine; Visit Provider Internal Medicine Cardiovascular Disease
DX: I73.9 Peripheral vascular disease, unspecified (principal); M79.604 Pain in right leg; M79.605 Pain in left leg
CPT/HCPCS: 93922

== ENCOUNTER → 2020-06-08 09:45 | Outpatient (BNVA) | payer MEDICARE, MEDICAID, SELFPAY | PROVIDERS: Visit Provider Nurse Practitioner Psychiatric/Mental Health | DX: F31.63 Bipolar disorder, current episode mixed, severe, without psychotic features (principal); Z79.899 Other long term (current) drug therapy | CPT/HCPCS: 80061; 83036 ==

== ENCOUNTER 2020-06-09 11:55 | Outpatient (CLI) | payer MEDICARE, MEDICAID, SELFPAY ==
[2020-06-09 11:54] VITALS: BP 102/68; BMI 32.5
[2020-06-10 16:20] LABS: Cat Dander (E1) Ige <0.10 kU/L; Cat Dander Class 0; Common Ragweed (Short) (W1) Ig <0.10 kU/L; Dog Dander (E5) Ige <0.10 kU/L; Dog Dander Class 0; Elm (T8) Ige <0.10 kU/L; Elm Class 0; English Plantain (W9) Ige <0.10 kU/L; English Plantain Class 0; Immunoglobulin E 64 kU/L (<OR=114); Immunoglobulin E 67 kU/L (<OR=114); Lamb'S Quarters (Goose Foot) <0.10 kU/L; Lamb'S Quarters Class 0; Maple (Box Elder) (T1) Ige <0.10 kU/L; Maple Class 0; Oak (T7) Ige <0.10 kU/L; Oak Class 0; Ragweeed Class 0; Rough Marsh Elder (W16) Ige <0.10 kU/L; Rough Marsh Elder Class 0
[2020-06-13 17:55] LABS: Alternaria Alternata (M6) Ige <0.10 kU/L; Alternaria Class 0; Bermuda Class 0; Bermuda Grass (G2) Ige <0.10 kU/L; D. Farinae Class 0; Dermatophagoides Class 0; Dermatophagoides Farinae (D2) <0.10 kU/L; Dermatophagoides Pteronyssinus <0.10 kU/L; House Dust (Greer) (H1) Ige <0.10 kU/L; House Dust (Hollister- Stier) <0.10 kU/L; House Dust Class 0; Johnson Grass (G10) Ige <0.10 kU/L; Johnson Grass Cl 0; June Grass Class 0; June Grass(Kentucky Blue) (G8) <0.10 kU/L; Meadow Fescue (G4) Ige <0.10 kU/L; Meadow Fescue Class 0; Mucor Racemosus Class 0; Orchard Grass (Cocksfoot) (G3) <0.10 kU/L; Penicillium Class 0; Penicillium Notatum (M1) Ige <0.10 kU/L; Perennial Rye Grass (G5) Ige <0.10 kU/L; Perennial Rye Grass Class 0; Sweet Vernal Class 0; Sweet Vernal Grass (G1) Ige <0.10 kU/L; Timothy Grass (G6) Ige <0.10 kU/L; Timothy Grass Class 0
[2020-06-14 23:36] LABS: Aspergillus Fumigatus, Igg Ab, 81.4 mg/L (<=102)
== END 2020-06-09 11:56 | disposition home or self-care (01) ==
LOC: LAB 11:59
PROVIDERS: Visit Provider Internal Medicine Critical Care Medicine
DX: R06.02 Shortness of breath (principal); G43.711 Chronic migraine without aura, intractable, with status migrainosus
CPT/HCPCS: 36415; 64615; 82785; 86003; J0585

== ENCOUNTER → 2020-06-15 09:46 | Outpatient (BNVA) | payer MEDICARE, MEDICAID, SELFPAY ==
[2020-06-09 11:54] VITALS: BP 102/68; BMI 32.5
== END ==
PROVIDERS: Visit Provider Nurse Practitioner Psychiatric/Mental Health
DX: F42.2 Mixed obsessional thoughts and acts (principal); F10.21 Alcohol dependence, in remission; F17.210 Nicotine dependence, cigarettes, uncomplicated; F31.63 Bipolar disorder, current episode mixed, severe, without psychotic features; F43.12 Post-traumatic stress disorder, chronic; F41.1 Generalized anxiety disorder; F40.01 Agoraphobia with panic disorder
CPT/HCPCS: 99214

== ENCOUNTER 2020-06-20 20:00 | Outpatient (CLI) | payer MEDICARE, SELFPAY | END 2020-06-20 20:01 | disposition home or self-care (01) | LOC: SLEEP 06-21 09:58 | PROVIDERS: Visit Provider Internal Medicine Cardiovascular Disease | DX: R06.02 Shortness of breath (principal); R06.83 Snoring; R53.83 Other fatigue | CPT/HCPCS: 95810 ==

== ENCOUNTER → 2020-07-01 08:37 | Outpatient (BNVA) | payer OTHER, MEDICAID, SELFPAY ==
[2020-06-09 11:54] VITALS: BP 102/68; BMI 32.5
== END ==
PROVIDERS: Visit Provider Internal Medicine
DX: Z11.59 Encounter for screening for other viral diseases (principal)
CPT/HCPCS: 87635

== ENCOUNTER 2020-07-06 09:58 | Outpatient (CLI) | payer MEDICARE, MEDICAID, SELFPAY ==
[2020-07-06 09:35] VITALS: BP 102/68; BMI 32.5
--- NOTE | 2020-07-06 10:38 | PFTS_ITS ---
Date of Study:07/06/20 Date of Dictation: 07/08/2020 MECHANICS: Forced vital capacity (FVC) is . Normal Forced expiratory volume in one second (FEV1) is . Normal FEV1/FVC is . Normal FLOW VOLUME LOOP: Normal No significant response to bronchodilators LUNG VOLUMES: Total lung capacity (TLC) is normal. Residual volume (RV) is . Normal DIFFUSING CAPACITY FOR CARBON MONOXIDE: Normal . INTERPRETATION: The pulmonary function tests are normal with no significant bronchodilator response MTDD
== END 2020-07-06 09:59 | disposition home or self-care (01) ==
LOC: RT 09:58
PROVIDERS: Visit Provider Internal Medicine Critical Care Medicine
DX: J44.9 Chronic obstructive pulmonary disease, unspecified (principal)
CPT/HCPCS: 94060; 94726; 94729; J7611

== ENCOUNTER → 2020-07-19 08:18 | Outpatient (BNVA) | payer MEDICARE, MEDICAID, SELFPAY ==
[2020-07-06 09:35] VITALS: BP 102/68; BMI 32.5
== END ==
PROVIDERS: Visit Provider Nurse Practitioner Psychiatric/Mental Health
DX: F42.2 Mixed obsessional thoughts and acts (principal); F10.21 Alcohol dependence, in remission; F31.63 Bipolar disorder, current episode mixed, severe, without psychotic features; F17.210 Nicotine dependence, cigarettes, uncomplicated; F43.12 Post-traumatic stress disorder, chronic; F41.1 Generalized anxiety disorder; F40.01 Agoraphobia with panic disorder
CPT/HCPCS: 84443; 99214

== ENCOUNTER → 2020-07-20 11:37 | Outpatient (BNVA) | payer MEDICARE, MEDICAID, SELFPAY ==
[2020-07-06 09:35] VITALS: BP 102/68; BMI 32.5
== END ==
PROVIDERS: Visit Provider Nurse Practitioner Psychiatric/Mental Health
DX: Z79.899 Other long term (current) drug therapy (principal); R53.83 Other fatigue
CPT/HCPCS: 82306; 84443; 85025

== ENCOUNTER 2020-07-25 12:39 | Emergency (ER) | payer OTHER, MEDICAID, SELFPAY ==
[2020-07-25 12:42] VITALS: BP 122/81; PULSE 130; RESP 18; TEMP 36.6; O2SAT 94; BMI 32.5
--- NOTE | 2020-07-25 13:00 | XRR_ITS ---
PROCEDURE INFORMATION: Exam: XR Chest, 1 View Exam date and time: 07/25/2020 1:25 PM Age: 45 years old Clinical indication: Cough and dyspnea; Additional info: Dyspnea/cough TECHNIQUE: Imaging protocol: XR of the chest Views: 1 view. COMPARISON: CT chest w con* [id number] 12/03/2019 9:33 AM FINDINGS: Lungs: Unremarkable. No consolidation. Pleural space: Unremarkable. No pleural effusion. No pneumothorax. Heart/Mediastinum: Unremarkable. No cardiomegaly. Bones/joints: Unremarkable. XR/XR chest 1V portable [id number] IMPRESSION: No acute findings.
--- NOTE | 2020-07-25 13:01 | ED_ITS ---
HPI - General Adult General: Chief complaint: General Medical Stated complaint: cough/sore throat/body aches Time Seen by Provider: 07/25/20 13:00 History of Present Illness: HPI narrative: 45-year-old female presents emergency room with complaint of nausea and vomiting with a cough and sore throat for the last 5 days low-grade fever. She has had some myalgias and generalized malaise as well. She not had any rash. Denies any hematochezia melena hematemesis or coffee-ground emesis. Onset (ago): day(s) (5) Severity: moderate Relieving factors: none Exacerbating factors: none Associated symptoms: Reports chest pain (With inspiration), cough, decreased appetite, dyspnea, fevers/chills, headache(s), malaise, nausea, short of breath, vomiting and weakness; Deny confusion, diaphoresis, rash, palpitations, seizures or syncope Treatments prior to arrival: none Review of Systems Const: Reports: malaise; Denies: diaphoresis ENMT: Denies: throat pain, ear or mastoid pain, nasal discharge or nasal congestion Card: Reports: chest pain (With inspiration); Denies: palpitations or syncope Resp: Reports: dyspnea GI: Reports: nausea and vomiting : Denies: flank pain, difficulty voiding, dysuria, urinary frequency or urinary urgency Skin/Breast: Denies: rash Neuro: Reports: headache(s); Denies: confusion [facility], [facility] ED PFSH: Medical History (Updated 07/25/20 @ 15:44 by Bridget Charles, [facility]) Alcohol use disorder, moderate, in early remission Patient reports was three years sober, with relapse on 05/12/20. Back pain Bipolar I disorder, most recent episode mixed, severe without psychotic features Brain mass Cigarette nicotine dependence COPD (chronic obstructive pulmonary disease) History of cancer of vulva (~1995) HTN (hypertension) with goal to be determined Mixed incontinence Obsessive-compulsive disorder Panic disorder with agoraphobia PSVT (paroxysmal supraventricular tachycardia) Shingles Urinary hesitancy Surgical History History of hysterectomy (~1994) SYDNI, ovaries spared-- reports for precancerous cervix cells Hx of bladder repair surgery (~1999) in clinic procedure Hx of breast biopsy Right Breast; benign- Giurgius S/P tonsillectomy Status post gamma knife treatment (~2004) Frontal Lobe of Benign Brain Tumor Family History Family/Other Cancer Breast Mother Cancer cervical cancer Mesothelioma Father Cancer Diabetes Hyperlipidemia Hypertension Stroke Family/Other Dementia Grandfather Diabetes Cancer Grandmother Cancer Paternal grandmother Diabetes Denies family history of Heart disease Social History Smoking and tobacco status: current every day smoker cigarettes Packs smoked per day: 0.1 Quit status (tobacco): quit date established Second hand smoke exposure: Yes Smoking risk assessment/counseling performed?: No Alcohol intake: former Desire information about substance/drug rehabilitation?: No Lives independently: Yes Household members: none Marital status: Current occupational status: disabled History of recent travel: Yes Details: [place] April 2020 Out of state: Yes Current gender identity: Female Female Reproductive History: Para: 3 Spontaneous abortions: No Physical Exam Const: COMMON NORMALS: no acute distress GENERAL APPEARANCE: cooperative and comfortable ORIENTATION/CONSCIOUSNESS: Yes awake, Yes oriented to person, Yes oriented to place and Yes oriented to time HENMT: COMMON NORMALS: normocephalic, atraumatic and hearing grossly normal bilaterally HEAD & SCALP: normocephalic and atraumatic Eye: COMMON NORMALS: Equal, round and reactive pupils present, EOMs intact bilaterally, conjunctivae normal and no scleral icterus CONJUNCTIVA: Yes conjunctivae normal PUPIL: Yes Equal, round and reactive pupils present Neck/C-Spine: COMMON NORMALS: full ROM, no lymphadenopathy, supple and no JVD Lymph: LYMPHATIC: no lymphadenopathy noted and no lymphedema noted Resp: COMMON NORMALS: normal respiratory effort, No retractions, No use of accessory muscles and clear to auscultation bilaterally AUSCULTATION: clear to auscultation bilaterally Cardio: COMMON NORMALS: no JVD, regular rate, regular rhythm and No murmurs present (Cardio) RATE: regular rate RHYTHM: regular rhythm GI: COMMON NORMALS: Soft to palpation and No hepatosplenomegaly present AUSCULTATION: Yes normoactive bowel sounds PALPATION: Yes Soft to palpation, No Tenderness to palpation present (GI), No Guarding due to palpation present (GI) and Yes No hepatosplenomegaly present Extremity: COMMON NORMALS: normal to inspection, capillary refill normal, no clubbing, cyanosis or edema, no calf tenderness and no pedal edema Neuro: SENSORIUM/ORIENTATION: Yes oriented to person, Yes oriented to place and Yes oriented to time Skin: COMMON NORMALS: no rashes or lesions noted GENERAL SKIN EXAM: no rashes or lesions noted Course Vital Signs: Vital signs: Vital Signs Temperature 97.8 F 07/25/20 12:42 Pulse Rate 112 H 07/25/20 15:44 Respiratory Rate 14 07/25/20 15:44 Blood Pressure 148/96 07/25/20 15:44 Pulse Oximetry 89 L 07/25/20 15:44 MDM - General Adult MDM Narrative: Medical decision making narrative: Suspected COVID-19 infection with stable vitals. Will discharge home return if has any difficulty with breathing recommend maintain self quarantine until results available Lab Data: Labs: Lab Results 07/25/20 07/25/20 07/25/20 Range/Units 13:24 14:53 14:53 WBC 11.3 H (4.0-10.0) 10^3/ uL RBC 4.96 (4.1-5.3) 10^6/u L Hgb 14.8 (11.5-15.3) g/dL Hct 45.5 (37.0-47.0) % MCV 91.7 (81-99) fL MCH 29.8 (28.0-34.0) pg MCHC 32.5 (30.0-36.0) g/dL RDW 13.2 (12.1-15.1) % Plt Count 218 (130-400) 10^3/c mm MPV 10.7 H (7.4-10.4) fL Neut % (Auto) 69.6 % Lymph % (Auto) 19.8 % [place] % (Auto) 6.8 % Eos % (Auto) 2.9 % Baso % (Auto) 0.7 % Neut # (Auto) 7.89 H (1.8-7.7) 10^3/u L Lymph # (Auto) 2.2 (0.8-4.8) 10^3/u L [place] # (Auto) 0.8 (0.2-0.9) 10^3/u L Eos # (Auto) 0.3 (0.0-0.8) 10^3/u L Baso # (Auto) 0.1 (0.0-0.1) 10^3/u L Nucleated RBC % (a uto) 0 % Nucleated RBCs # 0.0 /100WBC Sodium 137 (136-145) mmol/L Potassium 3.8 (3.5-5.1) mmol/L Chloride 105 (98-107) mmol/L Carbon Dioxide 22 (22-29) mmol/L Anion Gap 13.8 (5-19) BUN 5 L (6-20) mg/dL Creatinine 0.9 (0.5-0.9) mg/dL GFR Calculation 67.1 L (90-130) mL/min Glucose 98 (65-115) mg/dL Calculated Osmolal ity 281 L (285-295) mOsm/k g Calcium 9.4 (8.5-10.5) mg/dL Total Bilirubin 0.3 (0.15-1.2) mg/dL AST 16 (0-32) U/L ALT 22 (0-33) U/L Alkaline Phosphata se 151 H (35-105) IU/L Total Protein 6.9 (6.6-8.7) g/dL Albumin 4.0 (3.5-5.2) g/dL Globulin 2.9 (1.3-4.6) g/dL SARS-CoV-2 RNA (RT -PCR) Not detected (NOT DETECTED) Discharge Plan Discharge Patient Disposition: Home Clinical Impression: Suspected 2019-nCoV infection Condition: Stable Prescriptions: No Action simethicone 180 mg capsule 180 mg PO BID RF: 0 Centrum Flavor Burst Adult Tablet,Chewable 1 tab PO DAILY RF: 0 isosorbide mononitrate 30 mg tablet extended release 24 hr 15 mg PO BID Qty: 90 RF: 3 prazosin 5 mg capsule 5 mg PO BEDTIME Qty: 30 RF: 3 nitroglycerin [Nitrostat] 0.4 mg tablet, sublingual 0.4 mg SUBLINGUAL Q5M PRN (Reason: chest pain) Qty: 25 RF: 3 polyethylene glycol 3350 [Miralax] 17 gram powder in packet 17 gm PO DAILY 90 Days Qty: 90 RF: 0 Anoro Ellipta 62.5-25 mcg/actuation blister with device 1 inh INHALATION Q24H 30 Days Qty: 60 RF: 2 zonisamide [Zonegran] 100 mg capsule 200 mg PO DAILY Qty: 60 RF: 6 albuterol sulfate [ProAir HFA] 90 mcg/actuation HFA aerosol inhaler 2 puff INHALATION Q6H PRN (Reason: shortness of breath or wheezing) 30 Days Qty: 18 RF: 2 estradiol 1 mg tablet 1 mg PO DAILY Qty: 30 RF: 11 diazepam [Valium] 5 mg tablet 5 mg PO TID PRN (Reason: anxiety) Qty: 90 RF: 3 gabapentin 300 mg capsule 600 mg PO TID 30 Days Qty: 180 RF: 2 Chantix 1 mg tablet 1 mg PO BID Qty: 56 RF: 4 lactulose 10 gram/15 mL solution 15 ml PO BID 30 Days Qty: 900 RF: 4 Linzess 145 mcg capsule 145 mcg PO DAILY Qty: 30 RF: 0 trazodone 100 mg Tablet 300 mg PO BEDTIME RF: 0 fluvoxamine 100 mg tablet 100 mg PO QPM RF: 0 Benadryl Allergy 25 mg tablet 25 mg PO DAILY PRN (Reason: EPS) RF: 0 cariprazine 4.5 mg capsule 4.5 mg PO DAILY RF: 0 metoprolol tartrate 25 mg tablet 25 mg PO BID RF: 0 ibuprofen 600 mg tablet 600 mg PO TID PRN (Reason: fever or pain) Qty: 60 RF: 0 Discharge Orders: Discharge Order (Routine); Ordered 07/25/20 Ordered By: David Jacinto Activity Restrictions/Additional Instructions: Suspect that you do have COVID-19 request that you remain self quarantined until the results are available. Return if you have any difficulty breathing. Discharge Date/Time: 07/25/20 15:45 Coding Level of Care Code ED Software Tools Developer for Chg Fwd Exam Comprehensive
[2020-07-25 15:10] LABS: Basophils # 0.1 10^3/uL (0.0-0.1); Basophils % 0.7 %; Eosinophils # 0.3 10^3/uL (0.0-0.8); Eosinophils % 2.9 %; Hematocrit 45.5 % (37.0-47.0); Hemoglobin 14.8 g/dL (11.5-15.3); Lymphocytes # 2.2 10^3/uL (0.8-4.8); Lymphocytes % 19.8 %; Mean Corpuscular HGB Conc 32.5 g/dL (30.0-36.0); Mean Corpuscular Hemoglobin 29.8 pg (28.0-34.0); Mean Corpuscular Volume 91.7 fL (81-99); Mean Platelet Volume 10.7 fL (7.4-10.4); Monocytes # 0.8 10^3/uL (0.2-0.9); Monocytes % 6.8 %; Neutrophils # 7.89 10^3/uL (1.8-7.7); Neutrophils % 69.6 %; Nucleated Red Blood Cells % 0 %; Platelet Count 218 10^3/cmm (130-400); Red Blood Count 4.96 10^6/uL (4.1-5.3); Red Cell Distribution Width 13.2 % (12.1-15.1); White Blood Count 11.3 10^3/uL (4.0-10.0)
[2020-07-25 15:21] LABS: Alanine Aminotransferase 22 U/L (0-33); Alkaline Phosphatase 151 IU/L (35-105); Anion Gap 13.8 (5-19); Aspartate Amino Transferase 16 U/L (0-32); Blood Urea Nitrogen 5 mg/dL (6-20); Calcium 9.4 mg/dL (8.5-10.5); Carbon Dioxide 22 mmol/L (22-29); Chloride 105 mmol/L (98-107); Globulin 2.9 g/dL (1.3-4.6); Glomerular Filtration Rate 67.1 mL/min (90-130); Glucose 98 mg/dL (65-115); Osmolality Calculated 281 mOsm/kg (285-295); Potassium 3.8 mmol/L (3.5-5.1); Sodium 137 mmol/L (136-145); Total Bilirubin 0.3 mg/dL (0.15-1.2); Total Protein 6.9 g/dL (6.6-8.7)
[2020-07-25 15:44] VITALS: BP 148/96; PULSE 112; RESP 14; O2SAT 89
[2020-07-26 17:43] LABS: Quest SARS-CoV-2 RNA NOT DETECTED (NOT DETECTED)
--- NOTE | 2020-07-27 09:37 | PC.NURSE ---
pt called and informed of her covid results
== END 2020-07-25 15:45 | disposition home or self-care (01) ==
PROVIDERS: Emergency Provider Family Medicine
DX: Z20.828 Contact with and (suspected) exposure to other viral communicable diseases (principal); J44.9 Chronic obstructive pulmonary disease, unspecified; Z85.89 Personal history of malignant neoplasm of other organs and systems; I10 Essential (primary) hypertension; F17.210 Nicotine dependence, cigarettes, uncomplicated
CPT/HCPCS: 12345; 71045; 80053; 85025; 87635; 99281; 99283

== ENCOUNTER → 2020-08-10 08:14 | Outpatient (BNVA) | payer MEDICARE, MEDICAID, SELFPAY | PROVIDERS: PCP Surgery; Visit Provider Nurse Practitioner Psychiatric/Mental Health | DX: F31.63 Bipolar disorder, current episode mixed, severe, without psychotic features (principal); F42.2 Mixed obsessional thoughts and acts; F10.21 Alcohol dependence, in remission; F43.12 Post-traumatic stress disorder, chronic; F41.1 Generalized anxiety disorder; F40.01 Agoraphobia with panic disorder | CPT/HCPCS: 99214 ==

== ENCOUNTER → 2020-08-19 12:45 | Outpatient (BNVA) | payer MEDICARE, MEDICAID, SELFPAY | PROVIDERS: PCP Surgery; Visit Provider Obstetrics & Gynecology | DX: N39.3 Stress incontinence (female) (male) (principal) | CPT/HCPCS: 81000 ==

== ENCOUNTER 2020-08-30 06:00 | Outpatient (RCR) | payer MEDICARE, MEDICAID, SELFPAY | END 2020-09-26 23:59 | disposition home or self-care (01) | LOC: SOT 06:00 | PROVIDERS: PCP Family Medicine; Referring Provider Family Medicine; Visit Provider Family Medicine | DX: M77.11 Lateral epicondylitis, right elbow (principal) | CPT/HCPCS: 97110; 97165 ==

== ENCOUNTER → 2020-09-07 08:18 | Outpatient (BNVA) | payer MEDICARE, MEDICAID, SELFPAY ==
[2020-08-30 10:46] VITALS: BP 102/68; BMI 32.5
== END ==
PROVIDERS: PCP Family Medicine; Visit Provider Nurse Practitioner Psychiatric/Mental Health
DX: F31.63 Bipolar disorder, current episode mixed, severe, without psychotic features (principal); F42.2 Mixed obsessional thoughts and acts; F10.21 Alcohol dependence, in remission; F43.12 Post-traumatic stress disorder, chronic; F41.1 Generalized anxiety disorder; F40.01 Agoraphobia with panic disorder
CPT/HCPCS: 99214

== ENCOUNTER → 2020-09-08 13:27 | Outpatient (BNVA) | payer MEDICARE, MEDICAID, SELFPAY ==
[2020-08-30 10:46] VITALS: BP 102/68; BMI 32.5
== END ==
PROVIDERS: PCP Family Medicine; Visit Provider Specialist
DX: G43.711 Chronic migraine without aura, intractable, with status migrainosus (principal); F17.210 Nicotine dependence, cigarettes, uncomplicated
CPT/HCPCS: 64615; J0585

== ENCOUNTER → 2020-09-16 13:22 | Outpatient (BNVA) | payer OTHER, SELFPAY ==
[2020-09-16 13:00] VITALS: BP 102/68; BMI 32.5
== END ==
PROVIDERS: PCP Family Medicine; Visit Provider Obstetrics & Gynecology
DX: Z11.59 Encounter for screening for other viral diseases (principal); N39.3 Stress incontinence (female) (male); N81.10 Cystocele, unspecified
CPT/HCPCS: 87635

== ENCOUNTER → 2020-09-20 07:40 | Outpatient (BNVA) | payer MEDICARE, MEDICAID, SELFPAY ==
[2020-09-16 13:00] VITALS: BP 102/68; BMI 32.5
== END ==
PROVIDERS: PCP Family Medicine; Visit Provider Nurse Practitioner Psychiatric/Mental Health
DX: F31.63 Bipolar disorder, current episode mixed, severe, without psychotic features (principal); F42.2 Mixed obsessional thoughts and acts; F10.21 Alcohol dependence, in remission; F43.12 Post-traumatic stress disorder, chronic; F41.1 Generalized anxiety disorder; F40.01 Agoraphobia with panic disorder
CPT/HCPCS: 99214

== ENCOUNTER 2020-09-21 15:03 | Observation (INO) | payer MEDICARE, MEDICAID, SELFPAY ==
[2020-09-16 13:00] VITALS: BP 102/68; BMI 32.5
[2020-09-19 12:02] VITALS: BMI 34.3
--- NOTE | 2020-09-19 12:19 | ANES.PREANE2 ---
Pre-Anesthetic Assessment Pre-Anesthetic Assessment: Height/Weight: Height 1.63 m Weight 90.718 kg Preop Diagnosis: Stress urinary incontinence, vulvar Lichen sclersous Proposed Procedure: Operation Date: 09/21/20 10:20 Proposed Procedures p Anterior Repair 68582 N39.3(Not Applicable) - Cuco Bruno MD s Midurethral Single Incision Sling 71747 N81.10(Not Applicable) - Cuco Bruno MD Familial anesthetic complications: None Social: Social History: No alcohol and No tobacco Comment: former smoker Exam: Pre-Anes Outpt Exam: alert, oriented x 3, clear to auscultation bilaterally and regular rate & rhythm Airway: Cervical ROM: WNL MP: 3 Dentition: Chipped Pulmonary: Pulmonary: Asthma Comments: chronic bronchitis CV/HEM: CV/HEM: Angina (Stable) Comments: tachycardia Musc/skel: Musc/skel: Lower Back Pain Neuropsych: Comments: meningioma - will eventually need surgery she's told Anesthetic Plan: ASA status: 3 Anesthesia: General Risk of > 500 ml blood loss (7ml/kg in children): No PFSH Anesthesia PFSH: Medical History Alcohol use disorder, moderate, in early remission Patient reports was three years sober, with relapse on 05/12/20. Back pain Bipolar I disorder, most recent episode mixed, severe without psychotic features Brain mass Cigarette nicotine dependence COPD (chronic obstructive pulmonary disease) History of cancer of vulva (~1995) HTN (hypertension) with goal to be determined Mixed incontinence Obsessive-compulsive disorder Panic disorder with agoraphobia PSVT (paroxysmal supraventricular tachycardia) Shingles Urinary hesitancy Surgical History History of hysterectomy (~1994) SYDNI, ovaries spared-- reports for precancerous cervix cells Hx of bladder repair surgery (~1999) in clinic procedure Hx of breast biopsy Right Breast; benign- Giurgius S/P tonsillectomy Status post gamma knife treatment (~2004) Frontal Lobe of Benign Brain Tumor Family History Family/Other Cancer Breast Mother Cancer cervical cancer Mesothelioma Father Cancer Diabetes Hyperlipidemia Hypertension Stroke Family/Other Dementia Grandfather Diabetes Cancer Grandmother Cancer Paternal grandmother Diabetes Denies family history of Heart disease Social History (Updated 09/19/20 @ 09:01 by Christina Muniz RN) Smoking and tobacco status: former smoker Quit status (tobacco): has quit using tobacco Year quit tobacco: 2020 - 1.5 PPD x 32 Years Second hand smoke exposure: Yes Smoking risk assessment/counseling performed?: No Alcohol intake: former Substance/Drug Use: never Marital status: Female Reproductive History: Date of last menstrual period: 09/18/95 Para: 3 Spontaneous abortions: No Data Anesthesia Cardiac Studies: No Data to Display
[2020-09-21] VITALS (18 sets, daily range): BP systolic 103–135; BP diastolic 55–88; PULSE 71–102; RESP 12–18; TEMP 36.3–36.7; O2SAT 92–99
[2020-09-21] MEDS: sodium chloride 0.9% 1,000 ML 30 ML IV (09:37)
[2020-09-21 09:42] LABS: Basophils # 0.1 10^3/uL (0.0-0.1); Basophils % 0.8 %; Eosinophils # 0.6 10^3/uL (0.0-0.8); Eosinophils % 6.9 %; Hematocrit 46.2 % (37.0-47.0); Hemoglobin 15.1 g/dL (11.5-15.3); Lymphocytes # 2.5 10^3/uL (0.8-4.8); Lymphocytes % 29.9 %; Mean Corpuscular HGB Conc 32.7 g/dL (30.0-36.0); Mean Corpuscular Hemoglobin 29.7 pg (28.0-34.0); Mean Corpuscular Volume 90.9 fL (81-99); Mean Platelet Volume 10.3 fL (7.4-10.4); Monocytes # 0.5 10^3/uL (0.2-0.9); Monocytes % 6.1 %; Neutrophils # 4.71 10^3/uL (1.8-7.7); Neutrophils % 55.9 %; Nucleated Red Blood Cells % 0 %; Platelet Count 205 10^3/cmm (130-400); Red Blood Count 5.08 10^6/uL (4.1-5.3); Red Cell Distribution Width 13.5 % (12.1-15.1); White Blood Count 8.4 10^3/uL (4.0-10.0)
[2020-09-21 09:45] LABS: Add Urine Microscopic? NO
[2020-09-21 09:51] LABS: Bilirubin Urine Neg (Negative); Blood Urine Neg (Negative); Glucose Urine UA Norm (Normal); Ketones Urine Negative (Negative); Leukocyte Esterase Urine Negative (Negative); Nitrate Urine Negative (Negative); Protein Urine Neg (Negative); Specific Gravity, Urine 1.015 (1.005-1.030); Urine Appearance Clear (CLEAR); Urine Color Yellow (Yellow); Urobilinogen Urine Neg (Negative); pH Urine 5 (5-7)
[2020-09-21 10:06] LABS: Anion Gap 15.4 (5-19); Blood Urea Nitrogen 13 mg/dL (6-20); Calcium 9.2 mg/dL (8.5-10.5); Carbon Dioxide 23 mmol/L (22-29); Chloride 103 mmol/L (98-107); Glomerular Filtration Rate 67.1 mL/min (90-130); Glucose 100 mg/dL (65-115); Osmolality Calculated 284 mOsm/kg (285-295); Potassium 4.4 mmol/L (3.5-5.1); Sodium 137 mmol/L (136-145)
--- NOTE | 2020-09-21 10:19 | P.ANESUD_ITS ---
Pre-Anesthetic Update Pre-Anesthetic Assessment: Date of Surgery/Procedure: 09/21/20 Preop [place]a gnosis: Stress urinary incontinence, vulvar Lichen sclersous Proposed Procedure: Operation Date: 09/21/20 10:20 Proposed Procedures p Anterior Repair 85551 N39.3(Not Applicable) - Cuco Bruno MD s Midurethral Single Incision Sling 55045 N81.10(Not Applicable) - Cuco Bruno MD Any changes to Pre-Anesthetic Assessment?: No Last Intake: Intake Last Liquid Date 09/20/20 Last Liquid Time 20:00 Last Solid Date 09/20/20 Last Solid Time 20:00 Labs Last 48hrs: Laboratory Results - last 48 hr 09/21/20 09/21/20 09/21/20 09:18 09:24 09:24 WBC 8.4 RBC 5.08 Hgb 15.1 Hct 46.2 MCV 90.9 MCH 29.7 MCHC 32.7 RDW 13.5 Plt Count 205 MPV 10.3 Neut % (Auto) 55.9 Lymph % (Auto) 29.9 [place] % (Auto) 6.1 Eos % (Auto) 6.9 Baso % (Auto) 0.8 Neut # (Auto) 4.71 Lymph # (Auto) 2.5 [place] # (Auto) 0.5 Eos # (Auto) 0.6 Baso # (Auto) 0.1 Nucleated RBC % (a uto) 0 Nucleated RBCs # 0.0 Sodium 137 Potassium 4.4 Chloride 103 Carbon Dioxide 23 Anion Gap 15.4 BUN 13 Creatinine 0.9 GFR Calculation 67.1 L Glucose 100 Calculated Osmolal ity 284 L Calcium 9.2 Urine Color Yellow Urine Appearance Clear Urine pH 5 Ur Specific Gravit y 1.015 Urine Protein Neg Urine Glucose (UA) Norm Urine Ketones Negative Urine Blood Neg Urine Nitrate Negative Urine Bilirubin Neg Urine Urobilinogen Neg Ur Leukocyte Jessica ase Negative Vitals: Temperature 97.3 F L 09/21/20 09:12 Pulse Rate 73 09/21/20 09:12 Respiratory Rate 18 09/21/20 09:12 Blood Pressure 106/83 09/21/20 09:12 Blood Pressure Rosie n 90 09/21/20 09:12 Pulse Oximetry 99 09/21/20 09:12 Oxygen Delivery Me thod 09/21/20 09:12 Exam: Pre-Anes Outpt Exam: alert, oriented x 3, clear to auscultation bilaterally and regular rate & rhythm Cardiac Studies: No Data to Display
--- NOTE | 2020-09-21 12:42 | W.PM.OPSUD ---
Surgery/Procedure H&P Update DATE OF PROCEDURE: September 21, 2020 DATE H&P PERFORMED: 09/19/20 H&P UPDATE INFORMATION: I have reviewed H&P completed within last 30 days, I have examined patient prior to procedure and No changes to prior documentation PREOP DIAGNOSIS: Stress urinary incontinence, vulvar Lichen sclersous PLANNED PROCEDURE: Operation Date: 09/21/20 10:20 Proposed Procedures p Anterior Repair 15986 N39.3(Not Applicable) - Cuco Bruno MD s Midurethral Single Incision Sling 46585 N81.10(Not Applicable) - Cuco Bruno MD
[2020-09-21] MEDS: estrogens Conjugated Cream 30 gm 1 APPLIC VAGINAL (14:39)
--- NOTE | 2020-09-21 14:45 | P.OP_ITS ---
Operative Report Date of procedure: September 21, 2020 Pre-op Diagnosis: Stress urinary incontinence, vulvar Lichen sclersous Post-op diagnosis: same Procedure Done: anteriro colporrhaphy augmented with allograft Surgeon: Cuco Kauffman MD Anesthesia: General Estimated blood loss (mL): 50 IV fluids (mL): 1,500 Urine output (mL): 300 Complications: None Condition: stable Disposition: PACU Procedure: After obtaining informed consent, the patient was taken to the operating room and placed in the supine position, given general anesthesia, and prepped and draped in sterile fashion. The abdomen, vulva and vagina were prepped and draped in a sterile manner. A time out procedure was performed. The vaginal mucosa was then injected in the midline with normal saline. The vaginal mucosa was scored in the midline with the Bovie approximately 1 cm medial to the urethral meatus to 1 cm distal to the vaginal cuff. This vaginal mucosa was then undermined and then incised in the midline with the Metzenbaum scissors. The lateral aspects of the vaginal mucosa were then grasped with the Allis clamps and the vaginal mucosa was then dissected off the underlying fascia with the Metzenbaum scissors. Again, there was noted to be quite a bit of oozing at the incision, which was controlled with cautery. After adequate dissection was performed, bilaterally. A Colpoplast Allograft was modified at time of application to fit spacea, 3 x 3 cm piece . the Colpoplast Allograft was placed in front of cystocele ready to be implanted with the Basement Membrane facing the vagina mucosa. Suture is placed at distal end of graft and placed towards vaginal cuff. Final suture is placed on proximal portion of the graft to complete the placement overlying the bladder. Then Interrupted vertical mattress sutures of 0 Vicryl were used to elevate the cystocele superiorly. The excessive vaginal mucosa was then trimmed with the Metzenbaum scissors and the vaginal mu cosa was then reapproximated in the running interlocking fashion with 2-0 Vicryl. Then the Curry catheter was removed and cystoscope was inserted. The bladder was filled with sterile water. Complete evaluation of the bladder mucosa was performed noting no lacerations, dimpling, tears, bleeding of the mucosa or muscular layers. Both ureteral orifices were identified. Prompt excretion of urine from both ureteral orifices was noted. Cystoscope was withdrawn. The Curry catheter was replaced. Excellent hemostasis was obtained. A vaginal pack is placed overnight as postoperative support for the vaginal tissues after graft placement and closure of vaginal incisions. Sponge, lap, needle, and instrument counts were correct times three. The patient was taken to the recovery room, awake and in stable condition.
[2020-09-21] MEDS: dextrose 5%-lactated ringers 1,000 ML 125 ML IV (17:23)
[2020-09-21] MEDS: CLONazepam 0.5 mg Tablet PO (17:24)
[2020-09-21] MEDS: ketorolac 30 mg/mL INJ IVP (17:25)
[2020-09-21] MEDS: docusate sodium 100 mg Capsule PO (17:25)
[2020-09-21] MEDS: metoprolol tartrate 25 mg Tablet PO (17:59)
[2020-09-21] MEDS: isosorbide mononitrate ER 30 mg Tablet 15 MG PO (18:03)
[2020-09-21] MEDS: zonisamide 100 MG Capsule 200 MG PO (19:52)
[2020-09-21] MEDS: HYDROcodone-acetaminophen 5-325 mg Tablet PO (19:56)
--- NOTE | 2020-09-21 21:25 | PC.NURSE ---
supervisor maintenance informed that SCD pump and cords needed and day shift RN was notified that there are no other cords available in the hospital at this time.
--- NOTE | 2020-09-21 21:26 | PC.NURSE ---
Patient requesting to take at nap at this time. Once patient is awake we will get up to chair and then ambulate.
[2020-09-21] MEDS: prazosin 5 mg Capsule PO (21:57)
[2020-09-21] MEDS: gabapentin 300 mg Capsule 600 MG PO (21:57)
[2020-09-21] MEDS: trazodone 100 mg Tablet 300 MG PO (22:14)
[2020-09-22] MEDS: dextrose 5%-lactated ringers 1,000 ML 125 ML IV (01:17)
[2020-09-22 02:56] VITALS: BP 137/68; PULSE 69; RESP 16; TEMP 36.7; O2SAT 95
[2020-09-22] MEDS: HYDROcodone-acetaminophen 5-325 mg Tablet PO ×2 (03:01→08:46)
[2020-09-22 05:00] VITALS: BP 132/74; PULSE 78; RESP 16; TEMP 36.8
[2020-09-22 05:59] LABS: Hematocrit 43.4 % (37.0-47.0); Hemoglobin 14.1 g/dL (11.5-15.3); Mean Corpuscular HGB Conc 32.5 g/dL (30.0-36.0); Mean Corpuscular Hemoglobin 29.5 pg (28.0-34.0); Mean Corpuscular Volume 90.8 fL (81-99); Mean Platelet Volume 10.4 fL (7.4-10.4); Platelet Count 212 10^3/cmm (130-400); Red Blood Count 4.78 10^6/uL (4.1-5.3); Red Cell Distribution Width 13.2 % (12.1-15.1); White Blood Count 14.7 10^3/uL (4.0-10.0)
--- NOTE | 2020-09-22 08:24 | ANE.PACU2 ---
Inpatient post-anesthesia follow up: Airway intact: Yes Vital signs: Temperature 98.2 F Pulse Rate 78 Respiratory Rate 16 Blood Pressure 132/74 Pulse Oximetry 95 Oxygen Delivery Me thod Room Air Oxygen Flow Rate 8 Fraction of Inspir ed Oxygen Hydration adequate: Yes Nausea and vomiting: No Pain level: 2 Mental status: Baseline
--- NOTE | 2020-09-22 08:26 | P.DS_ITS ---
Discharge Providers PATTERN SETTER Date of Admission: 09/21/20 15:03 Date of Discharge: 10/05/20 Attending Provider at Admission: Cuco Bruno MD Attending Provider at Discharge: Cuco Bruno MD Primary Care Provider: Lily Zarate DO Reason for Visit Reason for Visit: Urinary stress incontinence, Cystocele grade 1 Hospital Course Hospital Course 45-year-old female with cystocele stage I urinary stress incontinence admitted for anterior colporrhaphy and mid urethral sling. An anterior colporrhaphy augmented with allograft was performed. Previous mid urethral sling was in place, and was reinforced with Nova plication. she is afebrile hemodynamically stable. Tolerating diet well. Ambulating without difficulty. PVR prior to discharge was 60 mL. Physical Exam Narrative: EXAM NARRATIVE: GA: Alert and oriented ?3. HEENT: WNL. Heart: Regular rate and rhythm. Lungs: Clear to auscultation bilaterally. Abdomen: Bowel sounds present, nontender. WOOD HEEL BACK LINER: No bleeding. Extremities: No edema, no cyanosis, no calves pain. Urinary Catheter Management^: Curry: Cath Placed During This Visit: yes, but has since been removed by the nurse Reason for Continuing Indwelling Catheter: Decision to DC Catheter Urinary Catheter Date of Insertion: 09/21/20 Urinary Catheter Time of Insertion: 13:30 Date Urinary Catheter Removed: 09/22/20 Time Urinary Catheter Discontinued: 05:20 Discharge Data Data Completed and Pending: Labs from last 24 hours 09/22/20 09/21/20 09/21/20 05:35 09:24 09:24 WBC 14.7 H RBC 4.78 Hgb 14.1 Hct 43.4 MCV 90.8 MCH 29.5 MCHC 32.5 RDW 13.2 Plt Count 212 MPV 10.4 Neut % (Auto) Lymph % (Auto) Maries % (Auto) Eos % (Auto) Baso % (Auto) Neut # (Auto) Lymph # (Auto) Maries # (Auto) Eos # (Auto) Baso # (Auto) Nucleated RBC % (a uto) Nucleated RBCs # Sodium 137 Potassium 4.4 Chloride 103 Carbon Dioxide 23 Anion Gap 15.4 BUN 13 Creatinine 0.9 GFR Calculation 67.1 L Glucose 100 Calculated Osmolal ity 284 L Calcium 9.2 Urine Color Urine Appearance Urine pH Ur Specific Gravit y Urine Protein Urine Glucose (UA) Urine Ketones Urine Blood Urine Nitrate Urine Bilirubin Urine Urobilinogen Ur Leukocyte Jessica ase Blood Type A Positive Rho(D) Type Positive Antibody Screen Negative 09/21/20 09/21/20 09:24 09:18 WBC 8.4 RBC 5.08 Hgb 15.1 Hct 46.2 MCV 90.9 MCH 29.7 MCHC 32.7 RDW 13.5 Plt Count 205 MPV 10.3 Neut % (Auto) 55.9 Lymph % (Auto) 29.9 Maries % (Auto) 6.1 Eos % (Auto) 6.9 Baso % (Auto) 0.8 Neut # (Auto) 4.71 Lymph # (Auto) 2.5 Maries # (Auto) 0.5 Eos # (Auto) 0.6 Baso # (Auto) 0.1 Nucleated RBC % (a uto) 0 Nucleated RBCs # 0.0 Sodium Potassium Chloride Carbon Dioxide Anion Gap BUN Creatinine GFR Calculation Glucose Calculated Osmolal ity Calcium Urine Color Yellow Urine Appearance Clear Urine pH 5 Ur Specific Gravit y 1.015 Urine Protein Neg Urine Glucose (UA) Norm Urine Ketones Negative Urine Blood Neg Urine Nitrate Negative Urine Bilirubin Neg Urine Urobilinogen Neg Ur Leukocyte Jessica ase Negative Blood Type Rho(D) Type Antibody Screen Vitals: Last Vital Signs Temp 98.2 F 09/22/20 05:00 Pulse 78 09/22/20 05:00 Resp 16 09/22/20 05:00 BP 132/74 09/22/20 05:00 Pulse Ox 95 09/22/20 02:56 Discharge Plan Discharge Patient Disposition: Home Condition: Stable Prescriptions: New Leupp 5-325 mg tablet 1 tab PO Q4H PRN (Reason: pain) Qty: 20 RF: 0 Continued simethicone 180 mg capsule 180 mg PO BID RF: 0 Centrum Flavor Burst Adult Tablet,Chewable 1 tab PO DAILY RF: 0 isosorbide mononitrate 30 mg tablet extended release 24 hr 15 mg PO BID Qty: 90 RF: 3 prazosin 5 mg capsule 5 mg PO BEDTIME Qty: 30 RF: 3 trazodone 300 mg tablet 300 mg PO DIRECTED PRN (Reason: sleep) Qty: 30 RF: 3 clonazepam [Klonopin] 0.5 mg tablet 0.5 mg PO BID Qty: 60 RF: 1 fluvoxamine 100 mg tablet 100 mg PO .7 pm Qty: 30 RF: 3 nitroglycerin [Nitrostat] 0.4 mg tablet, sublingual 0.4 mg SUBLINGUAL Q5M PRN (Reason: chest pain) Qty: 25 RF: 3 fluticasone propionate [Flonase Allergy Relief] 50 mcg/actuation spray,suspension 1 spray INTRANASAL Q12H 30 Days Qty: 15.8 RF: 4 estradiol 1 mg tablet 1 mg PO DAILY Qty: 30 RF: 11 Chantix 1 mg tablet 1 mg PO BID Qty: 56 RF: 4 Vraylar 3 mg capsule 3 mg PO DAILY Qty: 30 RF: 0 zonisamide [Zonegran] 100 mg capsule 200 mg PO DAILY Qty: 60 RF: 6 albuterol sulfate [ProAir HFA] 90 mcg/actuation HFA aerosol inhaler 2 puff INHALATION Q6H PRN (Reason: shortness of breath or wheezing) 30 Days Qty: 18 RF: 2 gabapentin 300 mg capsule 600 mg PO TID 30 Days Qty: 180 RF: 2 umeclidinium-vilanterol [Anoro Ellipta] 62.5-25 mcg/actuation blister with device See Rx Instructions .ROUTE .COMPLEX Qty: 60 RF: 3 diphenhydramine HCl [Benadryl Allergy] 25 mg tablet 25 mg PO DAILY PRN (Reason: EPS) RF: 0 metoprolol tartrate 25 mg tablet 25 mg PO BID RF: 0 ibuprofen 600 mg tablet 600 mg PO TID PRN (Reason: fever or pain) Qty: 60 RF: 0 No Action Linzess 145 mcg capsule 145 mcg PO DAILY Qty: 21 RF: 0 Discharge Orders: Discharge Order (Routine); Ordered 09/22/20 Ordered By: Cuco Bruno Referrals: Cuco Bruno MD [Physician] - 10/07/20 3:00 pm (* Your 2 week check is on 10/07/2020 at 3:00pm * Your 6 week follow up appointment is on 11/04/2020 at 1:30pm. ) Patient Instructions: Anterior Vaginal Repair (DC), OB Discharge Report, OB Food/Drug Interaction Guide, Post Anesthesia Care Activity Restrictions/Additional Instructions: 1. Please call [facility] [place] [facility] on next working day to make your post-operative appointment in 2 weeks. 2. Please stay home until you come back to the clinic on first post-operative check up. 3. Please follow instructions on your medications CAREFULLY. 4. If you have abdominal incision, do not cover it unless dressing is necessary because of drainage. OK to shower, but avoid bath. Leave steri-strips until they fall off. If they are still on one week after surgery, you may remove them. 5. If you had vaginal surgery, your doctor may instruct you to take SITZ bath. 6. Yellow, blood tinged odorous vaginal discharge is usually normal after hysterectomy or vaginal surgeries. 7. No sexual intercourse, tampons, or douches until you are completely released from the post-operative care. 8. Avoid constipation by eating right and maybe using some Metamucil or Milk of Magnesia. 9. All prescription refills are given during the working hours. Please do no wait till it runs out. Call the clinic at [phone] before your medication runs out. The clinic will get in touch with your doctor to prescribe medications if necessary. 10. Please remain within 40 mile radius from our hospital because emergencies do happen now and then during the post-operative period. 11. If you have stairs at home, take one step at a time slowly and minimize the number of trips. It helps to stay in one floor for the next few days. No lifting except what you can lift by one hand until you are released from the post-operative care. 12. Driving is discouraged until you are well healed. It may be 3-4 weeks before you feel strong enough to drive. You should be able to turn and look through the rear window without pain and you should be able to push the brake pedal very hard without pain before you drive. No fast rules, but SAFETY should be your primary concern. DO NOT drive if you are on sedating medications such as narcotics. 13. Call the clinic (during working hours) to make urgent appointment or go to the Emergency room, if any of the following occurs: i. Vaginal bleeding becomes heavy, more than a period. ii. Incision becomes red and sore, or drains pus. iii. Your temperature is over 100.4 or you have chill. iv. IV site becomes red and swollen (a little ``knot?? is usually OK) v. Persistent nausea and vomiting vi. Persistent constipation or diarrhea vii. Rash or allergic reaction to medications. 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
[2020-09-22] MEDS: docusate sodium 100 mg Capsule PO (08:46)
[2020-09-22] MEDS: CLONazepam 0.5 mg Tablet PO (08:47)
[2020-09-22] MEDS: metoprolol tartrate 25 mg Tablet PO (08:47)
[2020-09-22] MEDS: isosorbide mononitrate ER 30 mg Tablet 15 MG PO (08:47)
[2020-09-22] MEDS: gabapentin 300 mg Capsule 600 MG PO (08:47)
[2020-09-22] MEDS: estradiol 1 mg Tablet PO (08:48)
[2020-09-22] MEDS: pneumococcal (23 valent) SDV 0.5 mL IM (09:06)
[2020-09-22] MEDS: ibuprofen 800 mg tablet PO (09:08)
[2020-09-22 09:10] VITALS: BP 115/74; PULSE 69; RESP 16; TEMP 36.6; O2SAT 95
== END 2020-09-22 09:29 | disposition home or self-care (01) ==
LOC: OBGYN 15:05
PROVIDERS: Admitting Provider Obstetrics & Gynecology; PCP Family Medicine; Visit Provider Obstetrics & Gynecology
PROC: 0JQC0ZZ Repair Pelvic Region Subcutaneous Tissue and Fascia, Open Approach (ICD-10-PCS; CPT 57240; principal; 2020-09-21 10:20)
PROC: (CPT 57240; 2020-09-21 10:20)
PROC: 0TJB8ZZ Inspection of Bladder, Via Natural or Artificial Opening Endoscopic (ICD-10-PCS; CPT 52000; 2020-09-21 10:20)
DX: N39.3 Stress incontinence (female) (male) (principal); N81.10 Cystocele, unspecified; Z23 Encounter for immunization; J44.9 Chronic obstructive pulmonary disease, unspecified; Z85.89 Personal history of malignant neoplasm of other organs and systems; I10 Essential (primary) hypertension; Z87.891 Personal history of nicotine dependence
CPT/HCPCS: 57240; 12345; 36415; 51798; 80048; 81003; 85025; 85027; 86850; 86900; 90471; 90686; 90732; 96360; 96361; 96375; C1762; G0378; J0131; J0690; J1100; J1885; J2370; J2405; J2704; J2765; J3010; J3490; J3535; J7030; J8499

== ENCOUNTER → 2020-10-10 09:23 | Outpatient (BNVA) | payer MEDICARE, MEDICAID, SELFPAY ==
[2020-09-16 13:00] VITALS: BP 102/68; BMI 32.5
== END ==
PROVIDERS: PCP Family Medicine; Visit Provider Nurse Practitioner Psychiatric/Mental Health
DX: F31.63 Bipolar disorder, current episode mixed, severe, without psychotic features (principal); F42.2 Mixed obsessional thoughts and acts; F43.12 Post-traumatic stress disorder, chronic; F17.210 Nicotine dependence, cigarettes, uncomplicated; F41.1 Generalized anxiety disorder; F10.21 Alcohol dependence, in remission; F40.01 Agoraphobia with panic disorder
CPT/HCPCS: 99213

== ENCOUNTER → 2020-11-04 14:12 | Outpatient (BNVA) | payer MEDICARE, MEDICAID, SELFPAY ==
[2020-09-16 13:00] VITALS: BP 102/68; BMI 32.5
== END ==
PROVIDERS: PCP Family Medicine; Visit Provider Obstetrics & Gynecology
DX: R63.5 Abnormal weight gain (principal)
CPT/HCPCS: 84443

== ENCOUNTER → 2020-11-09 07:31 | Outpatient (BNVA) | payer MEDICARE, MEDICAID, SELFPAY ==
[2020-09-16 13:00] VITALS: BP 102/68; BMI 32.5
== END ==
PROVIDERS: PCP Family Medicine; Visit Provider Nurse Practitioner Psychiatric/Mental Health
DX: F31.63 Bipolar disorder, current episode mixed, severe, without psychotic features (principal); F42.2 Mixed obsessional thoughts and acts; F10.21 Alcohol dependence, in remission; F43.12 Post-traumatic stress disorder, chronic; F41.1 Generalized anxiety disorder; F40.01 Agoraphobia with panic disorder; F17.210 Nicotine dependence, cigarettes, uncomplicated
CPT/HCPCS: 99214

== ENCOUNTER → 2020-11-22 09:45 | Outpatient (BNVA) | payer MEDICARE, MEDICAID, SELFPAY ==
[2020-09-16 13:00] VITALS: BP 102/68; BMI 32.5
== END ==
PROVIDERS: PCP Family Medicine; Visit Provider Nurse Practitioner Psychiatric/Mental Health
DX: F31.63 Bipolar disorder, current episode mixed, severe, without psychotic features (principal); F42.2 Mixed obsessional thoughts and acts; F10.21 Alcohol dependence, in remission; F17.210 Nicotine dependence, cigarettes, uncomplicated; F43.12 Post-traumatic stress disorder, chronic; F41.1 Generalized anxiety disorder; F40.01 Agoraphobia with panic disorder
CPT/HCPCS: 99214

== ENCOUNTER → 2020-12-01 13:52 | Outpatient (BNVA) | payer MEDICARE, MEDICAID, SELFPAY ==
[2020-09-16 13:00] VITALS: BP 102/68; BMI 32.5
== END ==
PROVIDERS: PCP Family Medicine; Visit Provider Specialist
DX: G43.711 Chronic migraine without aura, intractable, with status migrainosus (principal); Z87.891 Personal history of nicotine dependence
CPT/HCPCS: 64615; J0585

== ENCOUNTER → 2020-12-06 08:16 | Outpatient (BNVA) | payer MEDICARE, MEDICAID, SELFPAY ==
[2020-09-16 13:00] VITALS: BP 102/68; BMI 32.5
== END ==
PROVIDERS: PCP Family Medicine; Visit Provider Nurse Practitioner Psychiatric/Mental Health
DX: F31.63 Bipolar disorder, current episode mixed, severe, without psychotic features (principal); F42.2 Mixed obsessional thoughts and acts; F17.210 Nicotine dependence, cigarettes, uncomplicated; F10.21 Alcohol dependence, in remission; F43.12 Post-traumatic stress disorder, chronic; F41.1 Generalized anxiety disorder; F40.01 Agoraphobia with panic disorder
CPT/HCPCS: 99214

== ENCOUNTER → 2020-12-22 08:31 | Outpatient (BNVA) | payer MEDICARE, MEDICAID, SELFPAY ==
[2020-09-16 13:00] VITALS: BP 102/68; BMI 32.5
== END ==
PROVIDERS: PCP Family Medicine; Visit Provider Nurse Practitioner Psychiatric/Mental Health
DX: F31.63 Bipolar disorder, current episode mixed, severe, without psychotic features (principal); F42.2 Mixed obsessional thoughts and acts; F17.210 Nicotine dependence, cigarettes, uncomplicated; F43.12 Post-traumatic stress disorder, chronic; F41.1 Generalized anxiety disorder; F10.21 Alcohol dependence, in remission
CPT/HCPCS: 99214

== ENCOUNTER → 2021-01-12 08:11 | Outpatient (BNVA) | payer MEDICARE, MEDICAID, SELFPAY ==
[2020-09-16 13:00] VITALS: BP 102/68; BMI 32.5
== END ==
PROVIDERS: PCP Family Medicine; Visit Provider Nurse Practitioner Psychiatric/Mental Health
DX: F31.63 Bipolar disorder, current episode mixed, severe, without psychotic features (principal); F42.2 Mixed obsessional thoughts and acts; F17.210 Nicotine dependence, cigarettes, uncomplicated; F43.12 Post-traumatic stress disorder, chronic; F41.1 Generalized anxiety disorder; F40.01 Agoraphobia with panic disorder; F10.21 Alcohol dependence, in remission
CPT/HCPCS: 99214

== ENCOUNTER → 2021-01-26 10:20 | Outpatient (BNVA) | payer MEDICARE, MEDICAID, SELFPAY ==
[2020-09-16 13:00] VITALS: BP 102/68; BMI 32.5
== END ==
PROVIDERS: PCP Family Medicine; Visit Provider Nurse Practitioner Psychiatric/Mental Health
DX: F31.63 Bipolar disorder, current episode mixed, severe, without psychotic features (principal); F42.2 Mixed obsessional thoughts and acts; F43.12 Post-traumatic stress disorder, chronic; F17.210 Nicotine dependence, cigarettes, uncomplicated; F41.1 Generalized anxiety disorder; F40.01 Agoraphobia with panic disorder; F10.21 Alcohol dependence, in remission
CPT/HCPCS: 99214

== ENCOUNTER → 2021-02-09 09:19 | Outpatient (BNVA) | payer MEDICARE, MEDICAID, SELFPAY ==
[2020-09-16 13:00] VITALS: BP 102/68; BMI 32.5
== END ==
PROVIDERS: PCP Family Medicine; Visit Provider Nurse Practitioner Psychiatric/Mental Health
DX: F31.63 Bipolar disorder, current episode mixed, severe, without psychotic features (principal); F43.12 Post-traumatic stress disorder, chronic; F42.2 Mixed obsessional thoughts and acts; F17.210 Nicotine dependence, cigarettes, uncomplicated; F41.1 Generalized anxiety disorder; F10.21 Alcohol dependence, in remission; F40.01 Agoraphobia with panic disorder
CPT/HCPCS: 99214

== ENCOUNTER → 2021-02-23 08:39 | Outpatient (BNVA) | payer MEDICARE, MEDICAID, SELFPAY ==
[2020-09-16 13:00] VITALS: BP 102/68; BMI 32.5
== END ==
PROVIDERS: PCP Family Medicine; Visit Provider Nurse Practitioner Psychiatric/Mental Health
DX: F31.63 Bipolar disorder, current episode mixed, severe, without psychotic features (principal); F42.2 Mixed obsessional thoughts and acts; F10.21 Alcohol dependence, in remission; F43.12 Post-traumatic stress disorder, chronic; F41.1 Generalized anxiety disorder; F40.01 Agoraphobia with panic disorder; F17.210 Nicotine dependence, cigarettes, uncomplicated
CPT/HCPCS: 99214

== ENCOUNTER 2021-03-16 09:18 | Outpatient (CLI) | payer MEDICARE, MEDICAID, SELFPAY ==
[2020-09-16 13:00] VITALS: BP 102/68; BMI 32.5
--- NOTE | 2021-03-16 09:23 | US_ITS ---
WS: [id number] ULTRASOUND ABDOMEN LIMITED CLINICAL INFORMATION: R10.9 - Unspecified abdominal pain COMPARISON: None. FINDINGS: Liver Size: Enlarged Craniocaudal length: 17.0 cm. Echogenicity: Dense Surface nodularity: None. Mass (size and location): None. Bile ducts Intrahepatic ducts: Normal. Common bile duct diameter: 0.3 cm. Gallbladder Normal. Gallstones: None. Gallbladder sludge: None. Gallbladder wall thickening: None. Pericholecystic fluid: None. Sonographic Wilson sign: Absent. Pancreas Normal as visualized. Right kidney: Normal. Hydronephrosis: None. Size: 12.4 cm x 5.5 cm x 4.5 cm. Abdominal aorta and IVC Visualized portions are normal. Ascites: None. US/US gall bladder [id number] IMPRESSION: 1. Diffuse fatty infiltration liver. 2. Normal gallbladder. 3. No hydronephrosis in right kidney.
== END 2021-03-16 09:19 | disposition home or self-care (01) ==
LOC: US 09:19
PROVIDERS: PCP Family Medicine; Visit Provider Surgery
DX: R10.9 Unspecified abdominal pain (principal)
CPT/HCPCS: 76705; 87635

== ENCOUNTER 2021-03-22 06:46 | Day surgery (SDC) | payer MEDICARE, MEDICAID, SELFPAY ==
[2020-09-16 13:00] VITALS: BP 102/68; BMI 32.5
[2021-03-20 12:59] VITALS: BMI 34.2
--- NOTE | 2021-03-22 06:57 | ANES.PREANE2 ---
Pre-Anesthetic Assessment Pre-Anesthetic Assessment: Height/Weight: Height 1.65 m Weight 93.44 kg Preop Diagnosis: Stress urinary incontinence, vulvar Lichen sclersous Proposed Procedure: Operation Date: 03/22/21 07:45 Proposed Procedures p EGD/colon 97135 32022 K62.5 R10.9(Not Applicable) - Vaughn Wells MD s Colonoscopy(Not Applicable) - Vaughn Wells MD Familial anesthetic complications: None Was Beta Shadia taken within 24 hours: Yes Was Clonidine taken within 24 hours: N/A Last intake: > 8 hrs Social: Social History: Tobacco and No alcohol Exam: Pre-Anes Outpt Exam: alert, oriented x 3 and regular rate & rhythm Additional Exam Findings (including area of procedure): B/L coarse wheeze Airway: Cervical ROM: WNL MP: 4 Dentition: Chipped (back tooth) and Other (missing) Pulmonary: Pulmonary: Asthma (take her albuterol every 4 hrs) and COPD Comments: patient has albuterol inhaler with her, will have her take before procedure bronchitis CV/HEM: CV/HEM: Arrythmia (tachycardia) and HTN Musc/skel: Musc/skel: Lower Back Pain Neuropsych: Comments: mengioma - no mass effect symptoms, other than migraine, but these are relieved by botox injections Anesthetic Plan: ASA status: 3 Anesthesia: MAC Risk of > 500 ml blood loss (7ml/kg in children): No PFSH Anesthesia PFSH: Medical History Aftercare following surgery of the genitourinary system Alcohol use disorder, moderate, in early remission Patient reports was three years sober, with relapse on 05/12/20 Back pain Bipolar I disorder, most recent episode mixed, severe without psychotic features Treatment resistant depression Brain mass Cigarette nicotine dependence COPD (chronic obstructive pulmonary disease) History of cancer of vulva (~1995) HTN (hypertension) with goal to be determined Mixed incontinence Obsessive-compulsive disorder Panic disorder with agoraphobia PSVT (paroxysmal supraventricular tachycardia) Shingles Urinary hesitancy Surgical History History of hysterectomy (~1994) SYDNI, ovaries spared-- reports for precancerous cervix cells Hx of bladder repair surgery (~1999) in clinic procedure Hx of breast biopsy Right Breast; benign- Giurgius S/P tonsillectomy Status post bladder repair 03/16/2020- midurethral sling and left labia majora biopsy performed by Dr. Bruno at [facility] [place] 09/21/2020- anterior colporrhaphy augmented with allograft performed by Dr. Bruno at [facility] Status post gamma knife treatment (~2004) Frontal Lobe of Benign Brain Tumor Family History Family/Other Cancer Breast Mother Cancer cervical cancer Mesothelioma Father Cancer Diabetes Hyperlipidemia Hypertension Stroke Family/Other Dementia Grandfather Diabetes Cancer Grandmother Cancer Paternal grandmother Diabetes Denies family history of Heart disease Social History Smoking and tobacco status: current every day smoker cigarettes Years cigarettes smoked: 33 [ Other cigarette details: 3 daily - Hx of 1.5 PPD x 33 Years ] Quit status (tobacco): considering quitting Second hand smoke exposure: Yes Smoking risk assessment/counseling performed?: Yes Alcohol intake: former Counseling given: No Counseling given: No Lives independently: Yes Household members: spouse Marital status: Current occupational status: disabled Current gender identity: Female Female Reproductive History: Date of last menstrual period: 09/18/95 Para: 3 Spontaneous abortions: No Data Anesthesia Cardiac Studies: No Data to Display
[2021-03-22 07:18] VITALS: BP 120/80; PULSE 92; RESP 18; TEMP 36.6; O2SAT 95
[2021-03-22] MEDS: sodium chloride 0.9% 1,000 ML 30 ML IV (07:35)
--- NOTE | 2021-03-22 07:48 | W.PM.OPSUD ---
Surgery/Procedure H&P Update DATE OF PROCEDURE: March 22, 2021 DATE H&P PERFORMED: 02/20/21 H&P UPDATE INFORMATION: I have reviewed H&P completed within last 30 days, I have examined patient prior to procedure and No changes to prior documentation PREOP DIAGNOSIS: Bloating, bleeding per rectum and history of colon polyps PRIMARY INDICATION FOR PROCEDURE: The same PLANNED PROCEDURE: Operation Date: 03/22/21 07:45 Proposed Procedures p EGD/colon 31780 [id number] K62.5 R10.9(Not Applicable) - Vaughn Wells MD s Colonoscopy(Not Applicable) - Vaughn Wells MD
[2021-03-22 08:32] VITALS: BP 110/72; PULSE 75; RESP 18; TEMP 36.5; O2SAT 95
--- NOTE | 2021-03-22 08:37 | ANE.PACU2 ---
Inpatient post-anesthesia follow up: Airway intact: Yes Vital signs: Temperature 97.7 F Pulse Rate 75 Respiratory Rate 18 Blood Pressure 110/72 Pulse Oximetry 95 Oxygen Delivery Me thod Room Air Oxygen Flow Rate Fraction of Inspir ed Oxygen Hydration adequate: Yes Nausea and vomiting: No Pain level: 1 Mental status: Baseline
[2021-03-22 08:43] VITALS: BP 101/63; PULSE 67; RESP 18; TEMP 36.6; O2SAT 96
[2021-03-23 06:31] LABS: H. Pylori / CLO Test Negative
== END 2021-03-22 08:59 | disposition home or self-care (01) ==
PROVIDERS: PCP Family Medicine; Visit Provider Surgery
PROC: 0DJD8ZZ Inspection of Lower Intestinal Tract, Via Natural or Artificial Opening Endoscopic (ICD-10-PCS; CPT 45378; 2021-03-22 07:45)
PROC: 0DJ08ZZ Inspection of Upper Intestinal Tract, Via Natural or Artificial Opening Endoscopic (ICD-10-PCS; CPT 43235; 2021-03-22 07:45)
DX: R14.0 Abdominal distension (gaseous) (principal); K62.5 Hemorrhage of anus and rectum; Z86.010 Personal history of colon polyps; D12.5 Benign neoplasm of sigmoid colon; D12.8 Benign neoplasm of rectum; K29.70 Gastritis, unspecified, without bleeding; J44.9 Chronic obstructive pulmonary disease, unspecified; I10 Essential (primary) hypertension; F17.210 Nicotine dependence, cigarettes, uncomplicated
CPT/HCPCS: 43239; 45385; 87077; 88305; 96360; 96361; J2704; J7030

== ENCOUNTER → 2021-03-23 08:20 | Outpatient (BNVA) | payer MEDICARE, MEDICAID, SELFPAY ==
[2020-09-16 13:00] VITALS: BP 102/68; BMI 32.5
== END ==
PROVIDERS: PCP Family Medicine; Visit Provider Nurse Practitioner Psychiatric/Mental Health
DX: F31.63 Bipolar disorder, current episode mixed, severe, without psychotic features (principal); F42.2 Mixed obsessional thoughts and acts; F43.12 Post-traumatic stress disorder, chronic; F17.210 Nicotine dependence, cigarettes, uncomplicated; F41.1 Generalized anxiety disorder; F40.01 Agoraphobia with panic disorder; Z87.898 Personal history of other specified conditions
CPT/HCPCS: 99214

== ENCOUNTER → 2021-04-07 07:21 | Outpatient (BNVA) | payer MEDICARE, MEDICAID, SELFPAY ==
[2020-09-16 13:00] VITALS: BP 102/68; BMI 32.5
== END ==
PROVIDERS: PCP Family Medicine; Visit Provider Nurse Practitioner Psychiatric/Mental Health
DX: F31.63 Bipolar disorder, current episode mixed, severe, without psychotic features (principal); F42.2 Mixed obsessional thoughts and acts; F43.12 Post-traumatic stress disorder, chronic; F41.1 Generalized anxiety disorder; F40.01 Agoraphobia with panic disorder; F17.210 Nicotine dependence, cigarettes, uncomplicated; Z87.898 Personal history of other specified conditions
CPT/HCPCS: 99214

== ENCOUNTER → 2021-04-21 08:53 | Outpatient (BNVA) | payer MEDICARE, MEDICAID, SELFPAY ==
[2020-09-16 13:00] VITALS: BP 102/68; BMI 32.5
== END ==
PROVIDERS: PCP Family Medicine; Visit Provider Specialist
DX: G43.711 Chronic migraine without aura, intractable, with status migrainosus (principal)
CPT/HCPCS: 64615; 96372; J0585; J1885; J2405

== ENCOUNTER 2021-04-24 09:34 | Outpatient (CLI) | payer MEDICARE, MEDICAID, SELFPAY ==
[2020-09-16 13:00] VITALS: BP 102/68; BMI 32.5
--- NOTE | 2021-04-24 10:00 | NM_ITS ---
WS: [id number] NUCLEAR MEDICINE HIDA SCAN CLINICAL INFORMATION: R14.0 - Abdominal distension (gaseous) TECHNIQUE: Following intravenous administration of 3.9 mCi of technetium 99m mebrofenin, images of th e abdomen were obtained over the course of 60 minutes. Next, gallbladder ejection fraction was determ ined by obtaining preprandial and one-hour postprandial images of the gallbladder following oral cornelius stion of Ensure. COMPARISON: None. FINDINGS: Normal hepatic uptake at 5 minutes. Gallbladder is visualized by 20 minutes. No evidence of acute cho lecystitis. Normal common bile duct. Normal small bowel activity. Gallbladder ejection fraction 85% within normal limits. No evidence of chronic cholecystitis. NM/NM hepatobiliary w phar* [id number] IMPRESSION: 1. No evidence of acute or chronic cholecystitis. 2. Normal gallbladder ejection fraction 85% within normal limits.
== END 2021-04-24 09:35 | disposition home or self-care (01) ==
LOC: RAD 09:37
PROVIDERS: PCP Family Medicine; Visit Provider Surgery
DX: R14.0 Abdominal distension (gaseous) (principal)
CPT/HCPCS: 78227; A9537

== ENCOUNTER → 2021-04-27 09:39 | Outpatient (BNVA) | payer MEDICARE, MEDICAID, SELFPAY ==
[2020-09-16 13:00] VITALS: BP 102/68; BMI 32.5
== END ==
PROVIDERS: PCP Family Medicine; Visit Provider Specialist
DX: G43.711 Chronic migraine without aura, intractable, with status migrainosus (principal)
CPT/HCPCS: 96372; G0463; J1885; J2405

== ENCOUNTER → 2021-05-02 16:03 | Outpatient (BNVA) | payer MEDICARE, MEDICAID, SELFPAY ==
[2020-09-16 13:00] VITALS: BP 102/68; BMI 32.5
== END ==
PROVIDERS: PCP Family Medicine; Visit Provider Family Medicine
DX: K59.00 Constipation, unspecified (principal); I10 Essential (primary) hypertension
CPT/HCPCS: 80048

== ENCOUNTER → 2021-05-03 07:26 | Outpatient (BNVA) | payer MEDICARE, MEDICAID, SELFPAY ==
[2020-09-16 13:00] VITALS: BP 102/68; BMI 32.5
== END ==
PROVIDERS: PCP Family Medicine; Visit Provider Nurse Practitioner Psychiatric/Mental Health
DX: F31.63 Bipolar disorder, current episode mixed, severe, without psychotic features (principal); F42.2 Mixed obsessional thoughts and acts; F43.12 Post-traumatic stress disorder, chronic; F17.210 Nicotine dependence, cigarettes, uncomplicated; F41.1 Generalized anxiety disorder; F40.01 Agoraphobia with panic disorder; Z03.89 Encounter for observation for other suspected diseases and conditions ruled out; Z87.898 Personal history of other specified conditions
CPT/HCPCS: 82607; 82652; 84443; 99214

== ENCOUNTER → 2021-05-15 14:23 | Outpatient (BNVA) | payer MEDICARE, MEDICAID, SELFPAY ==
[2020-09-16 13:00] VITALS: BP 102/68; BMI 32.5
== END ==
PROVIDERS: PCP Family Medicine; Visit Provider Nurse Practitioner Family
DX: N39.3 Stress incontinence (female) (male) (principal)
CPT/HCPCS: 81003

== ENCOUNTER → 2021-05-31 07:11 | Outpatient (BNVA) | payer MEDICARE, MEDICAID, SELFPAY ==
[2020-09-16 13:00] VITALS: BP 102/68; BMI 32.5
== END ==
PROVIDERS: PCP Family Medicine; Visit Provider Nurse Practitioner Psychiatric/Mental Health
DX: F31.63 Bipolar disorder, current episode mixed, severe, without psychotic features (principal); F42.2 Mixed obsessional thoughts and acts; F17.210 Nicotine dependence, cigarettes, uncomplicated; F43.12 Post-traumatic stress disorder, chronic; F41.1 Generalized anxiety disorder; F40.01 Agoraphobia with panic disorder; Z03.89 Encounter for observation for other suspected diseases and conditions ruled out; Z87.898 Personal history of other specified conditions
CPT/HCPCS: 99214

== ENCOUNTER → 2021-06-19 09:19 | Outpatient (BNVA) | payer MEDICARE, MEDICAID, SELFPAY ==
[2020-09-16 13:00] VITALS: BP 102/68; BMI 32.5
== END ==
PROVIDERS: PCP Family Medicine; Visit Provider Urology
DX: N39.46 Mixed incontinence (principal); R35.8 Other polyuria; N39.44 Nocturnal enuresis
CPT/HCPCS: 81003

== ENCOUNTER → 2021-07-05 07:35 | Outpatient (BNVA) | payer MEDICARE, MEDICAID, SELFPAY ==
[2020-09-16 13:00] VITALS: BP 102/68; BMI 32.5
== END ==
PROVIDERS: PCP Family Medicine; Visit Provider Nurse Practitioner Psychiatric/Mental Health
DX: F31.63 Bipolar disorder, current episode mixed, severe, without psychotic features (principal); F42.2 Mixed obsessional thoughts and acts; F43.12 Post-traumatic stress disorder, chronic; F17.210 Nicotine dependence, cigarettes, uncomplicated; F41.1 Generalized anxiety disorder; F40.01 Agoraphobia with panic disorder; Z87.898 Personal history of other specified conditions; Z03.89 Encounter for observation for other suspected diseases and conditions ruled out
CPT/HCPCS: 99214

== ENCOUNTER → 2021-07-27 11:06 | Outpatient (BNVA) | payer MEDICARE, MEDICAID, SELFPAY ==
[2020-09-16 13:00] VITALS: BP 102/68; BMI 32.5
== END ==
PROVIDERS: PCP Family Medicine; Visit Provider Specialist
DX: G43.711 Chronic migraine without aura, intractable, with status migrainosus (principal)
CPT/HCPCS: 64615; J0585; J1885

== ENCOUNTER 2024-04-11 12:32 | Emergency (ER) | payer MEDICARE, SELFPAY ==
[2020-09-16 13:00] VITALS: BP 102/68; BMI 32.5
[2024-04-11 13:24] VITALS: BP 133/79; PULSE 85; RESP 17; TEMP 37; O2SAT 91; BMI 33.3
--- NOTE | 2024-04-11 13:31 | XRR_ITS ---
PROCEDURE INFORMATION: Exam: XR Left Foot Exam date and time: 04/11/2024 1:41 PM Age: 49 years old Clinical indication: Injury or trauma; Fall; Blunt trauma; Foot; Left; Prior surgery; Surgery date: 6+ months; Surgery type: Orif L ankle TECHNIQUE: Imaging protocol: Radiologic exam of the left foot. Views: 3 or more views. COMPARISON: CR (LOW EXM, ) 04/11/2024 1:41 PM FINDINGS: Bones/joints: Old fracture fixations medial and lateral malleoli as seen on ankle radiograph. Deformity and arthritic changes of distal 1st metatarsal. No acute fracture or dislocation identified. Soft tissues: Arthritic changes 1st metatarsophalangeal articulation with minimal adjacent soft tissue swelling. XR/XR foot LT min 3V* [id number] IMPRESSION: No acute fracture or dislocation.
--- NOTE | 2024-04-11 13:31 | XRR_ITS ---
PROCEDURE INFORMATION: Exam: XR Left Ankle Exam date and time: 04/11/2024 1:41 PM Age: 49 years old Clinical indication: Injury or trauma; Fall; Blunt trauma; Ankle; Left; Prior surgery; Surgery date: 6+ months; Surgery type: Orif TECHNIQUE: Imaging protocol: Radiologic exam of the left ankle. Views: 3 or more views. COMPARISON: CR XR foot LT min 3V* [id number] 04/11/2024 1:41 PM FINDINGS: Bones/joints: No acute fracture or dislocation identified. Plate and screw fixation lateral malleolus and syndesmosis fixation noted. Cannulated screw fixation medial malleolus noted. Soft tissues: Normal. XR/XR ankle LT min 3V* [id number] IMPRESSION: No acute fracture or dislocation identified. Follow-up radiographs or CT scan as clinically indicated.
--- NOTE | 2024-04-11 13:32 | ED_ITS ---
HPI - Extremity Problem General: Chief complaint: Extremity Injury, Lower Stated complaint: Left foot pain Time Seen by Provider: 04/11/24 13:28 History of Present Illness: 49-year-old female comes in today for in jury to the left foot. Patient last night reports that she twisted her foot and has pain and discomfort to the dorsal foot and the toes of the foot. Patient has also had a recent repair of the left ankle that she is also concerned about. Patient has some swelling to the lower extremity and some pain with movement. Patient appears nontoxic. Review of Systems General: Reports: 10 or more systems reviewed and unremarkable except in HPI and below Musc: Reports: extremity pain (left foot), extremity swelling and joint pain (left ankle swelling) PFS ED PFSH: Medical History (Updated 04/11/24 @ 14:10 by CAITLYN WaltonP) Urinary incontinence, mixed History of alcohol use disorder Aftercare following surgery of the genitourinary system Cigarette nicotine dependence Urinary hesitancy Obsessive-compulsive disorder Panic disorder with agoraphobia History of cancer of vulva (~1995) Bipolar I disorder, most recent episode mixed, severe without psychotic features Treatment resistant depression Brain mass Mixed incontinence Shingles COPD (chronic obstructive pulmonary disease) Back pain PSVT (paroxysmal supraventricular tachycardia) HTN (hypertension) with goal to be determined Surgical History Status post bladder repair 03/16/2020- midurethral sling and left labia majora biopsy performed by Dr. Bruno at [facility] 09/21/2020- anterior colporrhaphy augmented with allograft performed by Dr. Bruno at [facility] Status post gamma knife treatment (~2004) Frontal Lobe of Benign Brain Tumor S/P tonsillectomy Hx of breast biopsy Right Breast; benign- Giurgius Hx of bladder repair surgery (~1999) in clinic procedure History of hysterectomy (~1994) SYDNI, ovaries spared-- reports for precancerous cervix cells Family History Family/Other Cancer Breast Mother Cancer cervical cancer Mesothelioma Father Cancer Diabetes Hyperlipidemia Hypertension Stroke Family/Other Dementia Grandfather Diabetes Cancer Grandmother Cancer Paternal grandmother Diabetes Denies family history of Heart disease Social History Smoking and tobacco/nicotine status: former use of tobacco/nicotine Quit status (tobacco/nicotine): not considering quitting Second hand smoke exposure: Yes Alcohol intake: former Substance/Drug Use: never Lives independently: Yes Household members: spouse Marital status: Current occupational status: disabled Do you think of yourself as: Straight/Heterosexual Current gender identity: Female Female Reproductive History: Para: 3 Spontaneous abortions: No Physical Exam Const: COMMON NORMALS: alert HENMT: COMMON NORMALS: normocephalic HEAD & SCALP: normocephalic Neck/C-Spine: COMMON NORMALS: full ROM CERVICAL SPINE: No Cervical spine tenderness Chest: COMMONS NORMALS: normal palpation of entire chest wall Resp: COMMON NORMALS: normal respiratory effort Cardio: COMMON NORMALS: regular rate RATE: regular rate GI: COMMON NORMALS: Soft to palpation and non-tender PALPATION: Yes Soft to palpation Back/Pelvis: COMMON NORMALS: thoracic and lumbar spine normal to inspection Extremity: LEFT LOWER EXTREMITY: Yes ankle joint (Swelling noted to the ankle with no tenderness) Left ankle: Yes inspection, Yes palpation, Yes ROM and Yes neurovascular exam and Yes foot & digits (Mild dorsal swelling minimal tenderness to palpation) Neuro: SENSORIUM/ORIENTATION: Yes alert Skin: COMMON NORMALS: turgor normal NARRATIVE SKIN EXAM: Superficial abrasion lateral left ankle no redness GENERAL SKIN EXAM: turgor normal Course Vital Signs: Vital signs: Vital Signs Temperature 98.6 F 04/11/24 13:24 Pulse Rate 85 04/11/24 13:24 Respiratory Rate 17 04/11/24 13:24 Blood Pressure 133/79 04/11/24 13:24 Pulse Oximetry 91 04/11/24 13:24 Oxygen Delivery Me thod Room Air 04/11/24 13:24 MDM - Extremity (Nontraumatic) Medical Decision Making 49-year-old female comes in today for complaints of injury to the left foot. On exam patient has mild swelling to the ankle and foot left lower extremity. Patient does have pain with weightbearing. Patient is able to tolerate weightbearing. Patient denies any diabetes or heart disease. Patient is on medications for asthma, bladder spasms, GERD, HRT and mental health issues. Differential diagnosis includes fracture, sprain, contusion. X-ray noted no obvious fractures. Hardware of the ORIF of the ankle remains intact and ankle remains in alignment. Reviewed exam with patient with recommendations for elastic bandage and follow-up as needed. Patient reported understanding. XR interpretation done by ED provider, pending radiology final review Discharge Plan Discharge Patient Disposition: Home Clinical Impression: Foot sprain Qualifiers: Encounter type: initial encounter Laterality: left Qualified Code(s): S93.602A - Unspecified sprain of left foot, initial encounter Condition: Stable Prescriptions: No Action simethicone 180 mg capsule 180 mg PO BID Flovent Diskus 100 mcg/actuation blister with device 2 inh inhalation BID 30 Days Qty: 60 3RF Anoro Ellipta 62.5-25 mcg/actuation blister with device See Rx Instructions .ROUTE .COMPLEX Qty: 60 3RF Dose Instruction: INHALE 1 PUFF BY MOUTH EVERY 24 HOURS Rx Instructions: INHALE 1 PUFF BY MOUTH EVERY 24 HOURS ondansetron HCl (PF) 4 mg/2 mL solution 4 mg IM ONCE Qty: 1 0RF cephalexin 500 mg capsule 500 mg PO TID lubiprostone [Amitiza] 8 mcg capsule 8 mcg PO BID Qty: 60 2RF nitroglycerin [Nitrostat] 0.4 mg tablet, sublingual 0.4 mg SUBLINGUAL Q5M PRN (Reason: chest pain) Qty: 25 3RF Rx Instructions: until response; do not exceed 3 doses per episode estradiol 2 mg tablet 2 mg PO DAILY Qty: 90 3RF metoprolol tartrate 25 mg tablet 25 mg PO BID Qty: 180 3RF albuterol sulfate [ProAir HFA] 90 mcg/actuation HFA aerosol inhaler 2 puff INHALATION Q6H PRN (Reason: shortness of breath or wheezing) 30 Days Qty: 18 2RF Protonix 40 mg tablet,delayed release (DR/EC) 40 mg PO DAILY 30 Days Qty: 30 2RF gabapentin [Neurontin] 600 mg tablet 600 mg PO TID Qty: 90 3RF oxybutynin chloride 5 mg tablet 5 mg PO BID Qty: 60 2RF diclofenac sodium 50 mg tablet,delayed release (DR/EC) See Rx Instructions .ROUTE .COMPLEX Qty: 60 2RF Dose Instruction: TAKE 1 TABLET BY MOUTH TWICE DAILY Rx Instructions: TAKE 1 TABLET BY MOUTH TWICE DAILY zonisamide 100 mg capsule See Rx Instructions .ROUTE .COMPLEX 15 Days Qty: 30 0RF Dose Instruction: TAKE 2 CAPSULES (=200 MG) ORALLY DAILY FOR 15 DAYS NO MORE REFILLS WITHOUT APPOINTMENT Rx Instructions: TAKE 2 CAPSULES (=200 MG) ORALLY DAILY FOR 15 DAYS NO MORE REFILLS WITHOUT APPOINTMENT diphenhydramine HCl [Benadryl Allergy] 25 mg tablet 25 mg PO DAILY PRN (Reason: EPS) Rx Instructions: Take one tablet in evening as needed for EPS Discharge Orders: Discharge ED (Routine); Ordered 04/11/24 Ordered By: Todd Sykes Referrals: Lily Zarate DO [Primary Care Provider] - Discharge Diet: Usual diet Discharge Activity: Increase activity as tolerated Patient Instructions: Foot Sprain (ED) Activity Restrictions/Additional Instructions: Activity as tolerated. Use ice to the area for pain and discomfort. Drink plenty of water and fluids. Follow-up with primary care for further instructions. Return to ED for new concerns. Coding Level of Care Code ED Supervisory Clerk for Stan Rainey
--- NOTE | 2024-04-11 14:59 | ED_ITS ---
HPI - Extremity Problem 2 General: Chief complaint: Extremity Injury, Lower Stated complaint: Left foot pain Time Seen by Provider: 04/11/24 13:28 History of Present Illness: The patient was being discharged and family had reached out to nursing staff expressing concern for changes in behavior and confusion. There was concern that he may be having a acute psychosis. The daughter in the room had not mentioned that she just mentioned that the nurse that was reached out to was discussing medications that the sister of the patient had called in for. Darlene Llanes from crisis intervention services contacted me and talked with me regarding the family's concerns wanting her to be evaluated further for possible psychosis. Patient denies any hallucinations or any other concerns. Patient reports that she is taking her medications as set up in her senior program planner. Patient denies any homicidal or suicidal thoughts. Patient was hospitalized last week about 3 weeks for psychosis. Patient is cooperative. Patient appears nontoxic. I reviewed this with patient telling her we are planning to go ahead and do some lab work and urine testing and will also do a CT of the head to rule out any injury. Patient reported understanding and agreed to plan. Review of Systems 2 General: Reports: 10 or more systems reviewed and unremarkable except in HPI and below PFSH ED 2 PFSH: Medical History (Updated 04/11/24 @ 16:51 by ADRIANE Walton) Urinary incontinence, mixed History of alcohol use disorder Aftercare following surgery of the genitourinary system Cigarette nicotine dependence Urinary hesitancy Obsessive-compulsive disorder Panic disorder with agoraphobia History of cancer of vulva (~1995) Bipolar I disorder, most recent episode mixed, severe without psychotic features Treatment resistant depression Brain mass Mixed incontinence Shingles COPD (chronic obstructive pulmonary disease) Back pain PSVT (paroxysmal supraventricular tachycardia) HTN (hypertension) with goal to be determined Surgical History Status post bladder repair 03/16/2020- midurethral sling and left labia majora biopsy performed by Dr. Bruno at [facility] [place] 09/21/2020- anterior colporrhaphy augmented with allograft performed by Dr. Bruno at [facility] Status post gamma knife treatment (~2004) Frontal Lobe of Benign Brain Tumor S/P tonsillectomy Hx of breast biopsy Right Breast; benign- Giurgius Hx of bladder repair surgery (~1999) in clinic procedure History of hysterectomy (~1994) SYDNI, ovaries spared-- reports for precancerous cervix cells Family History Family/Other Cancer Breast Mother Cancer cervical cancer Mesothelioma Father Cancer Diabetes Hyperlipidemia Hypertension Stroke Family/Other Dementia Grandfather Diabetes Cancer Grandmother Cancer Paternal grandmother Diabetes Denies family history of Heart disease Social History Smoking and tobacco/nicotine status: former use of tobacco/nicotine Quit status (tobacco/nicotine): not considering quitting Second hand smoke exposure: Yes Alcohol intake: former Substance/Drug Use: never Lives independently: Yes Household members: spouse Marital status: Current occupational status: disabled Do you think of yourself as: Straight/Heterosexual Current gender identity: Female Female Reproductive History: Para: 3 Spontaneous abortions: No Physical Exam 2 Const: COMMON NORMALS: patient oriented x3 and alert HENMT: COMMON NORMALS: normocephalic and atraumatic HEAD & SCALP: n ormocephalic and atraumatic Neck/C-Spine: COMMON NORMALS: full ROM Resp: COMMON NORMALS: normal respiratory effort and clear to auscultation bilaterally AUSCULTATION: clear to auscultation bilaterally Cardio: COMMON NORMALS: regular rate and regular rhythm RATE: regular rate RHYTHM: regular rhythm GI: COMMON NORMALS: Soft to palpation and non-tender PALPATION: Yes Soft to palpation Back/Pelvis: COMMON NORMALS: thoracic and lumbar spine normal to inspection Extremity: COMMON NORMALS: normal to inspection Neuro: COMMON NORMALS: patient oriented x3 SENSORIUM/ORIENTATION: Yes alert Skin: COMMON NORMALS: turgor normal GENERAL SKIN EXAM: turgor normal Course 2 Vital Signs: Vital signs: Vital Signs Temperature 98.6 F 04/11/24 13:24 Pulse Rate 85 04/11/24 13:24 Respiratory Rate 17 04/11/24 13:24 Blood Pressure 133/79 04/11/24 13:24 Pulse Oximetry 91 04/11/24 13:24 Oxygen Delivery Me thod Room Air 04/11/24 13:24 MDM - Extremity (Nontraumatic) Medical Decision Making Patient was brought in for complaints of foot injury but on discharge for the foot injury patient family was concerned about her seeming more confused than normal. They was concerned that she may be having a psychosis for a head injury. They requested further evaluation to rule out these concerns. No injuries noted to the scalp or head. No focal neurodeficits were noted. No pain along the spine was noted. Vital signs are normal. Patient denies head injury. Patient answers questions appropriately. Differential diagnosis includes but not limited to intoxication, substance use disorder, adverse drug effect, head injury, MDD, psychosis. 1614, reviewed exam with Dr. Jeffrey. He at this time unless the family can produce affidavits for 96-hour hold he does not recommend admission. Patient has been cooperative and alert and oriented and acting appropriately. CT of the head was unremarkable. Patient is her own guardian and does not have a POA. 1656, I discussed with patient and the family at this time patient is alert oriented and acting appropriate. Patient does deny suicidality or homicidality. Laboratory values are unremarkable except for a positive hCG. Patient has had a hysterectomy. I will set patient for follow-up with CHARGE MACHINE OPERATOR for further evaluation of this abnormal test. We will also request case management help patient reestablish with a primary care provider until she can follow-up with [facility] for further evaluation and treatment. Patient does not want to be admitted. Family at this time does not want to write affidavits for 96-hour hold. I recommended that if the family feels that patient needs to be admitted they could do affidavits and return with the patient. Patient reports understanding of plan of care for return if she has worsening symptoms or new concerns. Lab Data 04/11/24 15:46 04/11/24 15:46 Radiology Impressions Ankle X-Ray 04/11/24 13:31 IMPRESSION: No acute fracture or dislocation identified. Follow-up radiographs or CT scan as clinically indicated. Foot X-Ray 04/11/24 13:31 IMPRESSION: No acute fracture or dislocation. Head CT 04/11/24 15:02 IMPRESSION: No acute intracranial abnormality. Laboratory Results WBC 6.06 10^3/uL (3.29-11.43) 04/11/24 15:46 RBC 5.14 10^6/uL (3.85-5.65) 04/11/24 15:46 Hgb 14.60 g/dL (11.27-16.99) 04/11/24 15:46 Hct 46.3 % (36-47) 04/11/24 15:46 MCV 90.1 fl (85-98) 04/11/24 15:46 MCH 28.4 pg (27-33) 04/11/24 15:46 MCHC 31.5 g/dL (30-55) 04/11/24 15:46 RDW 13.0 % (12.1-15.1) 04/11/24 15:46 Plt Count 149 10^3/cmm (157-399) L 04/11/24 15:46 MPV 11.0 fL (7.4-10.4) H 04/11/24 15:46 Neut % (Auto) 55.9 % 04/11/24 15:46 Lymph % (Auto) 34.2 % 04/11/24 15:46 [place] % (Auto) 8.7 % 04/11/24 15:46 Eos % (Auto) 0.5 % 04/11/24 15:46 Baso % (Auto) 0.5 % 04/11/24 15:46 Neut # (Auto) 3.39 10^3/uL (1.8-7.7) 04/11/24 15:46 Lymph # (Auto) 2.1 10^3/uL (0.8-4.8) 04/11/24 15:46 [place] # (Auto) 0.5 10^3/uL (0.2-0.9) 04/11/24 15:46 Eos # (Auto) 0.0 10^3/uL (0.0-0.8) 04/11/24 15:46 Baso # (Auto) 0.0 10^3/uL (0.0-0.1) 04/11/24 15:46 Nucleated RBC % (auto) 0 % 04/11/24 15:46 Nucleated RBCs # 0.0 /100WBC 04/11/24 15:46 Sodium 139 mmol/L (136-145) 04/11/24 15:46 Potassium 3.9 mmol/L (3.5-5.1) 04/11/24 15:46 Chloride 101 mmol/L (98-107) 04/11/24 15:46 Carbon Dioxide 30 mmol/L (22-29) H 04/11/24 15:46 Anion Gap 11.9 (5-19) 04/11/24 15:46 BUN 13 mg/dL (6-20) 04/11/24 15:46 Creatinine 1.0 mg/dL (0.5-0.9) H 04/11/24 15:46 GFR Calculation 58.5 mL/min (90-130) L 04/11/24 15:46 Glucose 87 mg/dL (65-115) 04/11/24 15:46 Calculated Osmolality 287 mOsm/kg (285-295) 04/11/24 15:46 Calcium 9.2 mg/dL (8.5-10.5) 04/11/24 15:46 Total Bilirubin 0.4 mg/dL (0.15-1.2) 04/11/24 15:46 AST 40 U/L (0-32) H 04/11/24 15:46 ALT 76 U/L (0-33) H 04/11/24 15:46 Alkaline Phosphatase 127 U/L (35-105) H 04/11/24 15:46 Total Protein 7.3 g/dL (6.6-8.7) 04/11/24 15:46 Albumin 4.1 g/dL (3.5-5.2) 04/11/24 15:46 Globulin 3.2 g/dL (1.3-4.6) 04/11/24 15:46 TSH 1.72 uIU/mL (0.27-4.20) 04/11/24 15:46 HCG, Qual Positive (Negative) H 04/11/24 15:46 Salicylates < 0.3 mg/dL (3-10) L 04/11/24 15:46 Acetaminophen < 5.0 ug/mL (10-30) L 04/11/24 15:46 Ethyl Alcohol < 10 mg/dL (0-10) 04/11/24 15:46 All radiology interpretation(s) finalized by discharge Discharge Plan Discharge Patient Disposition: Home Clinical Impression: Post-traumatic stress disorder, chronic, Panic disorder with agoraphobia Foot sprain Qualifiers: Encounter type: initial encounter Laterality: left Qualified Code(s): S93.602A - Unspecified sprain of left foot, initial encounter Condition: Stable Prescriptions: No Action simethicone 180 mg capsule 180 mg PO BID Flovent Diskus 100 mcg/actuation blister with device 2 inh inhalation BID 30 Days Qty: 60 3RF Anoro Ellipta 62.5-25 mcg/actuation blister with device See Rx Instructions .ROUTE .COMPLEX Qty: 60 3RF Dose Instruction: INHALE 1 PUFF BY MOUTH EVERY 24 HOURS Rx Instructions: INHALE 1 PUFF BY MOUTH EVERY 24 HOURS ondansetron HCl (PF) 4 mg/2 mL solution 4 mg IM ONCE Qty: 1 0RF cephalexin 500 mg capsule 500 mg PO TID lubiprostone [Amitiza] 8 mcg capsule 8 mcg PO BID Qty: 60 2RF nitroglycerin [Nitrostat] 0.4 mg tablet, sublingual 0.4 mg SUBLINGUAL Q5M PRN (Reason: chest pain) Qty: 25 3RF Rx Instructions: until response; do not exceed 3 doses per episode estradiol 2 mg tablet 2 mg PO DAILY Qty: 90 3RF metoprolol tartrate 25 mg tablet 25 mg PO BID Qty: 180 3RF albuterol sulfate [ProAir HFA] 90 mcg/actuation HFA aerosol inhaler 2 puff INHALATION Q6H PRN (Reason: shortness of breath or wheezing) 30 Days Qty: 18 2RF Protonix 40 mg tablet,delayed release (DR/EC) 40 mg PO DAILY 30 Days Qty: 30 2RF gabapentin [Neurontin] 600 mg tablet 600 mg PO TID Qty: 90 3RF oxybutynin chloride 5 mg tablet 5 mg PO BID Qty: 60 2RF diclofenac sodium 50 mg tablet,delayed release (DR/EC) See Rx Instructions .ROUTE .COMPLEX Qty: 60 2RF Dose Instruction: TAKE 1 TABLET BY MOUTH TWICE DAILY Rx Instructions: TAKE 1 TABLET BY MOUTH TWICE DAILY zonisamide 100 mg capsule See Rx Instructions .ROUTE .COMPLEX 15 Days Qty: 30 0RF Dose Instruction: TAKE 2 CAPSULES (=200 MG) ORALLY DAILY FOR 15 DAYS NO MORE REFILLS WITHOUT APPOINTMENT Rx Instructions: TAKE 2 CAPSULES (=200 MG) ORALLY DAILY FOR 15 DAYS NO MORE REFILLS WITHOUT APPOINTMENT diphenhydramine HCl [Benadryl Allergy] 25 mg tablet 25 mg PO DAILY PRN (Reason: EPS) Rx Instructions: Take one tablet in evening as needed for EPS Discharge Orders: Discharge ED (Routine); Ordered 04/11/24 Ordered By: Todd Sykes Referrals: Lily Zarate DO [Primary Care Provider] - Discharge Diet: Usual diet Discharge Activity: Increase activity as tolerated Patient Instructions: Foot Sprain (ED) Activity Restrictions/Additional Instructions: Activity as tolerated. Use ice to the area for pain and discomfort. Drink plenty of water and fluids. Follow-up with primary care for further instructions. Return to ED for new concerns. Coding Level of Care Code ED Scoop Machine Operator for Stan Rainey
--- NOTE | 2024-04-11 15:02 | CTR_ITS ---
PROCEDURE INFORMATION: Exam: CT Head Without Contrast Exam date and time: 04/11/2024 3:26 PM Age: 49 years old Clinical indication: Altered mental status/memory loss; Additional info: Head injury, AMS TECHNIQUE: Imaging protocol: Computed tomography of the head without contrast. Radiation optimization: All CT scans at this facility use at least one of these dose optimization techniques: automated exposure control; mA and/or kV adjustment per patient size (includes targeted exams where dose is matched to clinical indication); or iterative reconstruction. COMPARISON: No relevant prior studies available. RADIATION DOSE METRICS: Total DLP (mGy-cm): 1121.28 FINDINGS: Brain: Normal. No hemorrhage. Unremarkable white matter. No mass effect. 7 x 13 x 12 mm benign focal dense calcification along the inferior aspect of falx noted. Cerebral ventricles: No ventriculomegaly. Paranasal sinuses: Visualized sinuses are unremarkable. No fluid levels. Mastoid air cells: Visualized mastoid air cells are well aerated. Bones: Unremarkable. No acute fracture. Soft tissues: Unremarkable. CT/CT head wo con* [id number] IMPRESSION: No acute intracranial abnormality.
[2024-04-11 16:14] LABS: Basophils % 0.5 %; Eosinophils % 0.5 %; Hematocrit 46.3 % (36-47); Lymphocytes # 2.1 10^3/uL (0.8-4.8); Lymphocytes % 34.2 %; Mean Corpuscular HGB Conc 31.5 g/dL (30-55); Mean Corpuscular Hemoglobin 28.4 pg (27-33); Mean Corpuscular Volume 90.1 fl (85-98); Monocytes # 0.5 10^3/uL (0.2-0.9); Monocytes % 8.7 %; Neutrophils # 3.39 10^3/uL (1.8-7.7); Neutrophils % 55.9 %; Nucleated Red Blood Cells % 0 %; Platelet Count 149 10^3/cmm (157-399); Red Blood Count 5.14 10^6/uL (3.85-5.65); White Blood Count 6.06 10^3/uL (3.29-11.43)
[2024-04-11 16:49] LABS: Alanine Aminotransferase 76 U/L (0-33); Albumin Level 4.1 g/dL (3.5-5.2); Alkaline Phosphatase 127 U/L (35-105); Anion Gap 11.9 (5-19); Aspartate Amino Transferase 40 U/L (0-32); Blood Urea Nitrogen 13 mg/dL (6-20); Calcium 9.2 mg/dL (8.5-10.5); Carbon Dioxide 30 mmol/L (22-29); Chloride 101 mmol/L (98-107); Globulin 3.2 g/dL (1.3-4.6); Glomerular Filtration Rate 58.5 mL/min (90-130); Glucose 87 mg/dL (65-115); HCG, Serum Qual Positive (Negative); Osmolality Calculated 287 mOsm/kg (285-295); Potassium 3.9 mmol/L (3.5-5.1); Sodium 139 mmol/L (136-145); Thyroid Stimulating Hormone 1.72 uIU/mL (0.27-4.20); Total Bilirubin 0.4 mg/dL (0.15-1.2); Total Protein 7.3 g/dL (6.6-8.7)
[2024-04-11 16:54] LABS: Acetaminophen < 5.0 ug/mL (10-30); Alcohol Level < 10 mg/dL (0-10); Creatinine Clr Calc Pharmacy 74.0605; Salicylate < 0.3 mg/dL (3-10)
[2024-04-11 16:57] LABS: Amphetamines Screen Urine Negative (Negative); Barbiturates Screen Urine Negative (Negative); Benzodiazepines Screen Urine Negative (Negative); Cocaine Screen Urine Negative (Negative); Opiate Screen Urine Negative (Negative); PCP Screen Urine Negative (Negative); THC Screen Urine Negative (Negative)
[2024-04-11 16:59] LABS: Add Urine Microscopic? YES; Bilirubin Urine Neg (Negative); Blood Urine 2+ (Negative); Glucose Urine UA Norm (Normal); Ketones Urine 1+ (Negative); Leukocyte Esterase Urine 2+ (Negative); Nitrate Urine Negative (Negative); Protein Urine Neg (Negative); Specific Gravity, Urine 1.005 (1.005-1.030); Urine Appearance Clear (CLEAR); Urine Color Yellow (Yellow); Urobilinogen Urine Norm (Negative); pH Urine 7 (5-7)
[2024-04-11 17:00] LABS: Add Urine Culture? Yes; Bacteria Urine 1+ /hpf; RBC Urine 0-4 /hpf (0-2); Squamous Epithelial Cell Urine 0-4 /hpf (0-5); WBC Urine 15-25 /hpf (0-5)
[2024-04-11 17:21] VITALS: BP 128/81; PULSE 79; RESP 16; TEMP 37; O2SAT 93
--- NOTE | 2024-04-13 07:30 | DCPLANNER ---
message sent to [facility] for er f/u
--- NOTE | 2024-04-13 07:31 | DCPLANNER ---
[facility] for er f/u also
== END 2024-04-11 17:22 | disposition home or self-care (01) ==
PROVIDERS: Emergency Provider Nurse Practitioner Family; PCP Family Medicine
DX: S93.602A Unspecified sprain of left foot, initial encounter (principal); Z87.891 Personal history of nicotine dependence; Z85.89 Personal history of malignant neoplasm of other organs and systems; J44.9 Chronic obstructive pulmonary disease, unspecified; I10 Essential (primary) hypertension; X50.1XXA Overexertion from prolonged static or awkward postures, initial encounter
CPT/HCPCS: 36415; 70450; 73610; 73630; 80053; 80306; 80307; 81001; 84443; 84703; 85025; 87086; 99284

== ENCOUNTER → 2024-04-22 11:15 | Outpatient (BNVA) | payer MEDICARE, SELFPAY ==
[2020-09-16 13:00] VITALS: BP 102/68; BMI 32.5
== END ==
PROVIDERS: PCP Family Medicine; Visit Provider Nurse Practitioner Women's Health
DX: R10.2 Pelvic and perineal pain (principal); Z78.0 Asymptomatic menopausal state; R63.5 Abnormal weight gain; R14.0 Abdominal distension (gaseous)
CPT/HCPCS: 82670; 83001; 83002; 84146; 84403; 84702

== ENCOUNTER → 2024-04-23 13:15 | Outpatient (BNVA) | payer MEDICARE, SELFPAY ==
[2020-09-16 13:00] VITALS: BP 102/68; BMI 32.5
== END ==
PROVIDERS: PCP Family Medicine; Visit Provider Nurse Practitioner Women's Health
DX: Z32.01 Encounter for pregnancy test, result positive (principal); R79.89 Other specified abnormal findings of blood chemistry
CPT/HCPCS: 81025

== ENCOUNTER → 2024-05-05 14:19 | Outpatient (BNVA) | payer MEDICARE, SELFPAY ==
[2020-09-16 13:00] VITALS: BP 102/68; BMI 32.5
== END ==
PROVIDERS: PCP Family Medicine; Visit Provider Nurse Practitioner Women's Health
DX: N83.291 Other ovarian cyst, right side (principal); Z90.710 Acquired absence of both cervix and uterus
CPT/HCPCS: 76830

== ENCOUNTER → 2024-05-12 15:18 | Outpatient (BNVA) | payer MEDICARE, SELFPAY ==
[2020-09-16 13:00] VITALS: BP 102/68; BMI 32.5
== END ==
PROVIDERS: PCP Family Medicine; Visit Provider Podiatrist Foot & Ankle Surgery
DX: S93.492A Sprain of other ligament of left ankle, initial encounter; W19.XXXA Unspecified fall, initial encounter; R29.6 Repeated falls
CPT/HCPCS: 73610

== ENCOUNTER 2024-05-12 16:41 | Outpatient (CLI) | payer MEDICARE, SELFPAY ==
[2020-09-16 13:00] VITALS: BP 102/68; BMI 32.5
== END 2024-05-12 16:42 | disposition home or self-care (01) ==
LOC: SPT 16:42
PROVIDERS: PCP Family Medicine; Visit Provider Podiatrist Foot & Ankle Surgery
DX: Z46.89 Encounter for fitting and adjustment of other specified devices (principal); S93.402D Sprain of unspecified ligament of left ankle, subsequent encounter; X58.XXXD Exposure to other specified factors, subsequent encounter
CPT/HCPCS: 97760; 99203; L1902

== ENCOUNTER → 2024-05-25 13:47 | Outpatient (BNVA) | payer MEDICARE, MEDICAID, SELFPAY ==
[2020-09-16 13:00] VITALS: BP 102/68; BMI 32.5
== END ==
DX: I10 Essential (primary) hypertension (principal); R53.83 Other fatigue; F31.9 Bipolar disorder, unspecified; M54.6 Pain in thoracic spine; G89.29 Other chronic pain; J44.9 Chronic obstructive pulmonary disease, unspecified; M79.7 Fibromyalgia; K31.84 Gastroparesis; E66.9 Obesity, unspecified
CPT/HCPCS: 80053; 80061; 84443; 84481; 85025

== ENCOUNTER 2024-06-12 08:00 | Outpatient (CLI) | payer MEDICARE, MEDICAID, SELFPAY ==
[2020-09-16 13:00] VITALS: BP 102/68; BMI 32.5
--- NOTE | 2024-06-12 08:03 | XR_ITS ---
WS: [id number] Examination: XR KUB [id number] Reason for Exam: abd bloating and nausea Date: June 12, 2024 Comparison: January 19, 2013 Findings: There is a large stool burden throughout the colon Limited small bowel gas is present The psoas margins are well seen. XR/XR KUB [id number] Impression: There is a large stool burden throughout the colon noted. No ileus is identifie d.
== END 2024-06-12 08:01 | disposition home or self-care (01) ==
LOC: RAD 08:01
PROVIDERS: Visit Provider Pediatrics
DX: K59.04 Chronic idiopathic constipation (principal); G43.711 Chronic migraine without aura, intractable, with status migrainosus; R14.0 Abdominal distension (gaseous); R11.0 Nausea; R49.0 Dysphonia; R26.9 Unspecified abnormalities of gait and mobility; F41.1 Generalized anxiety disorder
CPT/HCPCS: 74018; 99214; 99215

== ENCOUNTER 2024-06-12 09:17 | Outpatient (RCR) | payer MEDICARE, MEDICAID, SELFPAY ==
[2020-09-16 13:00] VITALS: BP 102/68; BMI 32.5
== END 2024-06-27 23:59 | disposition home or self-care (01) ==
LOC: SPT 09:17
PROVIDERS: Visit Provider Podiatrist Foot & Ankle Surgery
DX: S93.402D Sprain of unspecified ligament of left ankle, subsequent encounter (principal); X58.XXXD Exposure to other specified factors, subsequent encounter; R14.0 Abdominal distension (gaseous); R11.0 Nausea; G43.711 Chronic migraine without aura, intractable, with status migrainosus; R49.0 Dysphonia; R26.9 Unspecified abnormalities of gait and mobility; F41.1 Generalized anxiety disorder
CPT/HCPCS: 74018; 97110; 97162; 99214; 99215

== ENCOUNTER → 2024-09-16 07:45 | Outpatient (BNVA) | payer MEDICARE, MEDICAID, SELFPAY ==
[2020-09-16 13:00] VITALS: BP 102/68; BMI 32.5
== END ==
PROVIDERS: Visit Provider Podiatrist Foot & Ankle Surgery
DX: S93.492D Sprain of other ligament of left ankle, subsequent encounter; X58.XXXD Exposure to other specified factors, subsequent encounter
CPT/HCPCS: 99213

== ENCOUNTER 2024-09-29 07:02 | Outpatient (CLI) | payer MEDICARE, SELFPAY ==
[2020-09-16 13:00] VITALS: BP 102/68; BMI 32.5
--- NOTE | 2024-09-29 07:15 | MR_ITS ---
WS: [id number] MRI LEFT ANKLE WITHOUT CONTRAST. COMPARISON: Radiograph 05/12/2024 Multiplanar, multisequence imaging is performed without contrast. History: Status post injury 1 year ago. Continued ankle pain. Status post plate and screw fixation of the distal fibula. 2 screws stabilize the medial malleolus. T here is also syndesmosis fixation. There is a bony bridge at the syndesmosis which is better visualiz ed by radiograph. No marrow edema. Normal tarsal/metatarsal alignment. Normal calcaneus. There is an osteochondral defe ct measuring 3.7 mm along the medial talar dome. A loose body is not identified. There is no signific ant joint effusion. The talus is otherwise unremarkable. There are a few small subchondral cysts in t he base of the fourth metatarsal. Normal appearance of the Achilles tendon. No significant plantar spur. Peroneal tendons: The peroneal tendons are difficult to identify throughout their entire course. This is due to the adjacent hardware causing artifact. The peroneus brevis tendon is abnormal shape and s maller than expected. This is at the site of the fibular tip. Distal to the fibular tip there is norm al course and caliber. Very slight increased intermediate signal in the distal peroneus brevis at the fifth metatarsal attachment. There is increased T2 signal within the tendon sheath. Flexor hallucis longus and the flexor digitorum longus and the posterior tibial tendons are normal. E xtensor tendons are normal. Very thin anterior talofibular ligament. The posterior talofibular ligament is intact. Thickened fibr osed anterior inferior tibiofibular ligament. There is a very tiny loose body deep to the anterior in ferior tibiofibular ligament. Deltoid ligament is intact. Calcaneofibular ligament is intact. Normal sinus Tarsi. MR/MR ankle LT wo con* [id number] IMPRESSION: 1. Status post ORIF bilateral malleolus fractures. Hardware does obscure fine detail. 2. Bony bridge at the syndesmosis, seen best radiographically. 3. Medial talar dome 3.7 mm osteochondral defect. 4. Short segment focal increased signal in the peroneal tendon sheath just dis stephany to the fibular tip. Although the peroneal tendons are difficult to visualiz e in their entirety the peroneal brevis tendon does appear to have a split tear extending over a short distance. Distally both the peroneal brevis and longus tendons are normal. 5. Very thin caliber anterior talofibular ligament but intact. 6. Thickened anterior inferior tibiofibular ligament probably from remote inju ry with healing and scarring. 7. Few small subchondral cysts at the base of the fourth metatarsal.
== END 2024-09-29 07:03 | disposition home or self-care (01) ==
PROVIDERS: Visit Provider Podiatrist Foot & Ankle Surgery
DX: S86.312A Strain of muscle(s) and tendon(s) of peroneal muscle group at lower leg level, left leg, initial encounter (principal); M85.672 Other cyst of bone, left ankle and foot; X58.XXXA Exposure to other specified factors, initial encounter; Z98.890 Other specified postprocedural states
CPT/HCPCS: 73721

== ENCOUNTER → 2024-10-29 10:40 | Outpatient (BNVA) | payer MEDICARE, MEDICAID, SELFPAY ==
[2024-10-29 11:08] VITALS: BP 102/68; BMI 32.5
== END ==
PROVIDERS: Visit Provider Podiatrist Foot & Ankle Surgery
DX: S93.492D Sprain of other ligament of left ankle, subsequent encounter (principal); M76.822 Posterior tibial tendinitis, left leg; M25.372 Other instability, left ankle; X58.XXXD Exposure to other specified factors, subsequent encounter
CPT/HCPCS: 99213

== ENCOUNTER → 2024-12-23 13:02 | Outpatient (BNVA) | payer MEDICARE, MEDICAID, SELFPAY ==
[2024-10-29 11:08] VITALS: BP 102/68; BMI 32.5
== END ==
PROVIDERS: Visit Provider Specialist
DX: G43.711 Chronic migraine without aura, intractable, with status migrainosus (principal); R49.0 Dysphonia; R26.9 Unspecified abnormalities of gait and mobility; F41.1 Generalized anxiety disorder
CPT/HCPCS: 99213

== ENCOUNTER → 2025-02-09 09:30 | Outpatient (BNVA) | payer MEDICARE, MEDICAID, SELFPAY ==
[2024-10-29 11:08] VITALS: BP 102/68; BMI 32.5
== END ==
PROVIDERS: Visit Provider Podiatrist Foot & Ankle Surgery
DX: M79.671 Pain in right foot (principal); M79.672 Pain in left foot; M76.822 Posterior tibial tendinitis, left leg; M25.372 Other instability, left ankle
CPT/HCPCS: 73630; 99214

== ENCOUNTER → 2025-02-16 13:43 | Outpatient (BNVA) | payer MEDICARE, MEDICAID, SELFPAY ==
[2024-10-29 11:08] VITALS: BP 102/68; BMI 32.5
== END ==
PROVIDERS: Visit Provider Podiatrist Foot & Ankle Surgery
DX: M76.822 Posterior tibial tendinitis, left leg (principal); M25.372 Other instability, left ankle; M79.671 Pain in right foot; M79.672 Pain in left foot
CPT/HCPCS: 99213